=== PATIENT | male | born 1990 | race Caucasian/White ===

== ENCOUNTER 2016-11-23 07:48 | Emergency (ER) | payer SELFPAY ==
[~2016-11-23] VITALS: Ht 177.8 cm; Wt 75.0 kg
[~2016-11-23 07:48] MED LIST: HYDR-3534 PO
[2016-11-23 07:49] VITALS: BP 162/99; PULSE 74; RESP 16; TEMP 97.9; O2SAT 98
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
[2016-11-23 07:57] VITALS: O2SAT 98
[2016-11-23] MEDS ORDERED: ONDANSETRON HCL 4 MG/2 ML VIAL IVP ONE (08:00)
[2016-11-23] MEDS ORDERED: MORPHINE SULFATE 4 MG/ML INJ IV PUSH ONE (08:00)
[2016-11-23] MEDS ORDERED: SODIUM CHLOR 0.9% 1000 ML INJ 1,000 ML IV SCH (08:00)
[2016-11-23] MEDS ORDERED: SODIUM CHLORIDE 0.9% FLUSH 5 ML FLUSH IVF PRN (08:00)
[2016-11-23] MEDS ORDERED: BACL10TA PO (08:02)
[2016-11-23 08:12] VITALS: BP 146/86; PULSE 86; RESP 16; O2SAT 95
[2016-11-23 08:13] LABS: AUTOMATED NEUTROPHIL # 6.4 TH/MM3 (1.8-7.7); BASOPHIL # 0.1 TH/MM3 (0-0.2); BASOPHIL % 0.8 % (0.0-2.0); EOSINOPHIL # 0.2 TH/MM3 (0-0.4); EOSINOPHIL % 1.6 % (0.0-4.0); HEMATOCRIT 47.1 % (39.0-51.0); HEMO FLAGS DIFF FINAL; LYMPH % 19.3 % (9.0-44.0); LYMPHOCYTE # 1.8 TH/MM3 (1.0-4.8); MEAN CELL VOLUME 84.5 FL (80.0-100.0); MEAN CORPUSCULAR HEMOGLOBIN 29.8 PG (27.0-34.0); MEAN CORPUSCULAR HGB CONC 35.2 % (32.0-36.0); MONO % 9.2 % (0.0-8.0); NEUT % 69.1 % (16.0-70.0); PLATELET COUNT 203 TH/MM3 (150-450); RED BLOOD COUNT 5.57 MIL/MM3 (4.50-5.90); WHITE BLOOD COUNT 9.3 TH/MM3 (4.0-11.0)
[2016-11-23 08:32] LABS: ALT (GPT) 42 U/L (12-78); ANION GAP 9 MEQ/L (5-15); AST (GOT) 30 U/L (15-37); BLOOD UREA NITROGEN 13 MG/DL (7-18); CHLORIDE 107 MEQ/L (98-107); GLOMERULAR FILTRATION RATE 77 ML/MIN (>89); POTASSIUM 3.5 MEQ/L (3.5-5.1); SODIUM (NA) 141 MEQ/L (136-145)
[2016-11-23 08:34] LABS: ALKALINE PHOSPHATASE 90 U/L (45-117); TOTAL BILIRUBIN ADULT 1.1 MG/DL (0.2-1.0)
--- NOTE | 2016-11-23 08:48 | RADRPT ---
EXAM DATE/TIME: 11/23/2016 08:24 [facility] COMPARISON: CT ABDOMEN & PELVIS W/O CONTRAST, July 21, 2016, 7:58. INDICATIONS : Right upper quadrant pain. ORAL CONTRAST: No oral contrast ingested. RADIATION DOSE: 9.30 CTDIvol (mGy) MEDICAL HISTORY : None SURGICAL HISTORY : None. ENCOUNTER: Initial ACUITY: 1 day PAIN SCALE: 6/10 LOCATION: Right upper quadrant TECHNIQUE: Volumetric scanning of the abdomen and pelvis was performed. Using automated exposure control and ad justment of the mA and/or kV according to patient size, radiation dose was kept as low as reasonably achievable to obtain optimal diagnostic quality images. FINDINGS: LOWER LUNGS: The visualized lower lungs are clear. LIVER: Homogeneous density without lesion. There is no dilation of the biliary tree. No calcified gallston es. SPLEEN: Normal size without lesion. PANCREAS: Within normal limits. KIDNEYS: Normal in size and shape. There is no mass, stone, or hydronephrosis. ADRENAL GLANDS: Within normal limits. VASCULAR: There is no aortic aneurysm. BOWEL/MESENTERY: The stomach, small bowel, and colon demonstrate no acute abnormality. There is no free intraperitone al air or fluid. ABDOMINAL WALL: Within normal limits. RETROPERITONEUM: There is no lymphadenopathy. BLADDER: No wall thickening or mass. REPRODUCTIVE: Within normal limits. INGUINAL: There is no lymphadenopathy or hernia. MUSCULOSKELETAL: Within normal limits for patient age. CONCLUSION: No abnormality is identified on this noncontrast examination. Rocky Ferro MD on November 23, 2016 at 8:33 Board Certified Radiologist. This report was verified electronically.
[2016-11-23 09:24] LABS: BLOOD, URINE NEG (NEG); GLUCOSE,URINE NEG (NEG); KETONE, URINE NEG (NEG); MUCUS URINE FEW /lpf (OCC); NITRITE,URINE NEG (NEG); PH, URINE 5.5 (5.0-8.5); SQUAMOUS EPITHELIAL CELL URINE <1 /hpf (0-5); URINE COLOR YELLOW (YELLW/STRAW)
[2016-11-23 09:30] LABS: COMMENT (UR) CULT NOT INDICATED; CULTURE IF INDICATED CULT NOT INDICATED
[2016-11-23 09:50] VITALS: BP 142/74
== END 2016-11-23 09:51 | disposition home or self-care (01) ==
LOC: NEPE 07:48
DX: R10.10 Upper abdominal pain, unspecified (principal); R30.0 Dysuria; K44.9 Diaphragmatic hernia without obstruction or gangrene; K21.9 Gastro-esophageal reflux disease without esophagitis
CPT/HCPCS: 74176; 80053; 81001; 83690; 85025; 96374; 96375; 99284; J2270; J2405; J7030

== ENCOUNTER 2016-12-14 07:31 | Emergency (ER) | payer SELFPAY ==
[~2016-12-14] VITALS: Ht 170.2 cm; Wt 83.5 kg
[~2016-12-14 07:31] MED LIST changes: +BACL10TA PO; -HYDR-3534 PO
[2016-12-14 07:35] VITALS: BP 139/93; PULSE 70; RESP 16; TEMP 97.7; O2SAT 98
[2016-12-14] MEDS ORDERED: NAPR500T PO (08:00)
[2016-12-14] MEDS ORDERED: KETOROLAC TROMETHAMINE 60 MG/2 ML (IM) VIAL IM ONE (08:00)
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
== END 2016-12-14 08:13 | disposition home or self-care (01) ==
LOC: PHED 07:31
DX: G89.29 Other chronic pain (principal)
CPT/HCPCS: 96372; 99283; J1885

== ENCOUNTER 2017-09-11 11:36 | Observation (INO) | payer SELFPAY ==
[~2017-09-11] VITALS: Ht 170.2 cm; Wt 90.7 kg
[~2017-09-11 11:36] MED LIST changes: +NAPR500T2 PO
[2017-09-11 11:38] VITALS: BP 186/100; PULSE 79; RESP 16; TEMP 97.8; O2SAT 98
[2017-09-11 12:06] LABS: AUTOMATED NEUTROPHIL # 6.3 TH/MM3 (1.8-7.7); BASOPHIL # 0.1 TH/MM3 (0-0.2); BASOPHIL % 0.9 % (0.0-2.0); EOSINOPHIL # 0.2 TH/MM3 (0-0.4); EOSINOPHIL % 1.6 % (0.0-4.0); HEMATOCRIT 48.1 % (39.0-51.0); HEMO FLAGS DIFF FINAL; LYMPH % 22.1 % (9.0-44.0); LYMPHOCYTE # 2.2 TH/MM3 (1.0-4.8); MEAN CELL VOLUME 87.1 FL (80.0-100.0); MEAN CORPUSCULAR HEMOGLOBIN 30.6 PG (27.0-34.0); MEAN CORPUSCULAR HGB CONC 35.1 % (32.0-36.0); MONO % 11.5 % (0.0-8.0); NEUT % 63.9 % (16.0-70.0); PLATELET COUNT 212 TH/MM3 (150-450); RED BLOOD COUNT 5.52 MIL/MM3 (4.50-5.90); RED CELL DISTRIBUTION WIDTH 12.9 % (11.6-17.2); WHITE BLOOD COUNT 9.8 TH/MM3 (4.0-11.0)
[2017-09-11 12:25] LABS: ALT (GPT) 51 U/L (12-78); ANION GAP 6 MEQ/L (5-15); AST (GOT) 31 U/L (15-37); BLOOD UREA NITROGEN 12 MG/DL (7-18); CHLORIDE 106 MEQ/L (98-107); GLOMERULAR FILTRATION RATE 85 ML/MIN (>89); POTASSIUM 3.9 MEQ/L (3.5-5.1); SODIUM (NA) 140 MEQ/L (136-145)
[2017-09-11 12:27] LABS: ALKALINE PHOSPHATASE 103 U/L (45-117); TOTAL BILIRUBIN ADULT 0.4 MG/DL (0.2-1.0)
[2017-09-11] MEDS ORDERED: SODIUM CHLOR 0.9% 1000 ML INJ 1,000 ML IV SCH ×2 (12:47→15:34)
--- NOTE | 2017-09-11 12:50 | PD ---
HPI Chief Complaint: GI Complaint Time Seen by Provider: 12:50 Travel History International Travel<30 days: No Contact w/Intl Traveler<30days: No Traveled to known affect area: No History of Present Illness HPI 27-year-old male that presents emergency Department with complaint of epigastric pain that started this morning. Reports vomiting 2 times with hematocrit emesis; last vomited 3 hours ago. Continued nausea. Reports feeling lightheaded and hot. Denies fevers. Denies dysuria, change in stool; bowel movement this morning was normal. Reports fatigue and feeling tired. Denies chest pain, shortness of breath. Has not taken any medications or drainage to alleviate symptoms. Has history of prostatic fossa chill hernia repair and history of gallstones. No other abdominal surgeries. Rates pain 4/ 10. Worse with sitting up. Described as burning. No known allergies. Primary care provider is Dr. Gallagher. Denies significant past medical history. Reports occasional alcohol use. Denies tobacco use or illicit drug use. Has no other medical complaints. No other modifying factors or associated signs and symptoms. PFSH Past Medical History Asthma: No Blood Disorders: No Anxiety: No Depression: No Heart Rhythm Problems: No Cancer: No Cardiovascular Problems: No High Cholesterol: No Chemotherapy: No Chest Pain: No Congestive Heart Failure: No COPD: No Cerebrovascular Accident: No Diabetes: No Diminished Hearing: No Endocrine: No Gastrointestinal Disorders: Yes (GERD, HX GALL STONES) GERD: No Genitourinary: No Headaches: Yes Hepatitis: No Hiatal Hernia: Yes Immune Disorder: No Musculoskeletal: No Neurologic: Yes ("SEIZURE-LIKE SYMPTOMS" RESOLVED) Psychiatric: Yes (ANXIETY HX) Reproductive: No Respiratory: No Immunizations Current: Yes Migraines: No Seizures: No Sleep Apnea: No Thyroid Disease: No Ulcer: No Past Surgical History Abdominal Surgery: Yes (laparoscopy parasphyngeal hernia repair) AICD: No Joint Replacement: No Oral Surgery: Yes (TONSILLECTOMY AGE 5) Pacemaker: No Tonsillectomy: Yes Other Surgery: Yes Social History Alcohol Use: Yes (occ) Tobacco Use: No (never) Substance Use: No Allergies-Medications (Allergen,Severity, Reaction): Coded Allergies: No Known Allergies (Verified Allergy, Unknown, 09/11/17) Reported Meds & Prescriptions Reported Meds & Active Scripts Active No Active Prescriptions or Reported Medications Review of Systems Except as stated in HPI: all other systems reviewed are Neg Physical Exam Narrative GENERAL: Well-nourished, well-developed male patient, in no acute distress; afebrile SKIN: Warm and dry. HEAD: Atraumatic. Normocephalic. EYES: Pupils equal and round. No scleral icterus. No injection or drainage. ENT: Mucosa pink and moist. Airway patent. NECK: Trachea midline. CARDIOVASCULAR: Regular rate and rhythm. No murmur appreciated. RESPIRATORY: No accessory muscle use. Clear to auscultation. Breath sounds equal bilaterally. GASTROINTESTINAL: Abdomen soft, tenderness on palpation to epigastric and RUQ, nondistended. Hepatic and splenic margins not palpable. Positive Clark's sign Bowel sounds are active 4 quadrants. Nonrigid. No rebound tenderness. No guarding. BACK: No CVA tenderness. MUSCULOSKELETAL: No obvious deformities. No clubbing. No cyanosis. No edema. NEUROLOGICAL: Awake and alert. Oriented 3. No obvious cranial nerve deficits. Motor grossly within normal limits. Normal speech. PSYCHIATRIC: Appropriate mood and affect; insight and judgment normal. Data Data Last Documented VS Vital Signs Date Time Temp Pulse Resp B/P (MAP) Pulse Ox O2 Delivery O2 Flow Rate FiO2 09/11/17 14:45 77 16 160/95 (116) 98 Room Air 09/11/17 11:38 97.8 Orders Orders Complete Blood Count With Diff (09/11/17 11:42) Comprehensive Metabolic Panel (09/11/17 11:42) Lipase (09/11/17 11:42) Urinalysis - C+S If Indicated (09/11/17 12:47) Ct Abd/Pel W/O Iv Contrast (09/11/17 12:47) Iv Access Insert/Monitor (09/11/17 12:47) Ondansetron Inj (Zofran Inj) (09/11/17 13:00) Sodium Chlor 0.9% 1000 Ml Inj (Ns 1000 M (09/11/17 12:47) Sodium Chloride 0.9% Flush (Ns Flush) (09/11/17 13:00) Ciprofloxacin 400 Mg Premix (Cipro 400 M (09/11/17 15:30) Metronidazole 500 Mg Inj (Flagyl 500 Mg (09/11/17 15:30) Pantoprazole Inj (Protonix Inj) (09/11/17 15:45) Admit Order (Ed Use Only) (09/11/17 ) Vital Signs (Adult) Q4H (09/11/17 15:34) Activity Oob With Assistance (09/11/17 15:34) Sodium Chlor 0.9% 1000 Ml Inj (Ns 1000 M (09/11/17 15:34) Labs Laboratory Tests Test 09/11/17 11:30 09/11/17 13:15 White Blood Count 9.8 TH/MM3 Red Blood Count 5.52 MIL/MM3 Hemoglobin 16.9 GM/DL Hematocrit 48.1 % Mean Corpuscular Volume 87.1 FL Mean Corpuscular Hemoglobin 30.6 PG Mean Corpuscular Hemoglobin Concent 35.1 % Red Cell Distribution Width 12.9 % Platelet Count 212 TH/MM3 Mean Platelet Volume 9.6 FL Neutrophils (%) (Auto) 63.9 % Lymphocytes (%) (Auto) 22.1 % Monocytes (%) (Auto) 11.5 % Eosinophils (%) (Auto) 1.6 % Basophils (%) (Auto) 0.9 % Neutrophils # (Auto) 6.3 TH/MM3 Lymphocytes # (Auto) 2.2 TH/MM3 Monocytes # (Auto) 1.1 TH/MM3 Eosinophils # (Auto) 0.2 TH/MM3 Basophils # (Auto) 0.1 TH/MM3 CBC Comment DIFF FINAL Differential Comment Erythrocyte Sedimentation Rate 1 mm/hr Blood Urea Nitrogen 12 MG/DL Creatinine 1.05 MG/DL Random Glucose 73 MG/DL Total Protein 8.2 GM/DL Albumin 4.7 GM/DL Calcium Level 9.2 MG/DL Alkaline Phosphatase 103 U/L Aspartate Amino Transf (AST/SGOT) 31 U/L Alanine Aminotransferase (ALT/SGPT) 51 U/L Total Bilirubin 0.4 MG/DL Sodium Level 140 MEQ/L Potassium Level 3.9 MEQ/L Chloride Level 106 MEQ/L Carbon Dioxide Level 28.0 MEQ/L Anion Gap 6 MEQ/L Estimat Glomerular Filtration Rate 85 ML/MIN Lipase 78 U/L Urine Color YELLOW Urine Turbidity CLEAR Urine pH 5.5 Urine Specific [place] 1.023 Urine Protein NEG mg/dL Urine Glucose (UA) NEG mg/dL Urine Ketones NEG mg/dL Urine Occult Blood NEG Urine Nitrite NEG Urine Bilirubin NEG Urine Urobilinogen 2.0 MG/DL Urine Leukocyte Esterase NEG Urine WBC 1 /hpf Urine Calcium Oxalate Crystals OCC /hpf Urine Mucus FEW /lpf Microscopic Urinalysis Comment CULT NOT INDICATED MDM Medical Decision Making Medical Screen Exam Complete: Yes Emergency Medical Condition: Yes Medical Record Reviewed: Yes Differential Diagnosis Bleeding gastric ulcer, cholecystitis, Narrative Course 27-year-old male with epigastric and right upper quadrant abdominal pain on exam. IV site established. CBC, CMP, lipase, normal saline bolus, Zofran, CT abdomen/pelvis ordered. I offered the patient pain medication and he declined. 1250: CBC, CMP unremarkable. Lipase 78. 1520: CT abd/pelvis concludes: Abdomen/Pelvis CT 09/11/17 1247 Signed Impressions: Service Date/Time: Monday, September 11, 2017 14:36 - CONCLUSION: 1. Mild circumferential wall thickening of a proximal to mid jejunal loop with multiple slightly distended primarily air filled loops of mid to distal jejunum. More proximal and distal loops of bowel are decompressed. There also some slightly prominent regional mesenteric nodes. Overall findings may be inflammatory or infectious in etiology with developing focal adynamic ileus or less likely partial small bowel obstruction. Overall configuration does not exclude a closed-loop obstruction. MD Dr. Lance Khoury discussed the CT findings with the patient. The patient will be admitted. Dr. Lucas spoke with the admitting physician for admission. Physician Communication Physician Communication Dr. Lucas spoke with admitting physician Diagnosis Primary Impression: Upper abdominal pain, unspecified Admitting Information Admitting Physician Requests: Admit Scripts No Active Prescriptions or Reported Meds Bia Cruz Sep 11, 2017 12:50
[2017-09-11] MEDS ORDERED: ONDANSETRON HCL 4 MG/2 ML VIAL IVP ONE (13:00)
[2017-09-11] MEDS ORDERED: SODIUM CHLORIDE 0.9% FLUSH 10 ML FLUSH IV FLUSH PRN ×2 (13:00→16:30)
[2017-09-11 14:04] LABS: BLOOD, URINE NEG (NEG); CALCIUM OXALATE CRYSTALS,URINE OCC /hpf; GLUCOSE,URINE NEG (NEG); KETONE, URINE NEG (NEG); MUCUS URINE FEW /lpf (OCC); NITRITE,URINE NEG (NEG); PH, URINE 5.5 (5.0-8.5); URINE COLOR YELLOW (YELLW/STRAW)
[2017-09-11 14:05] LABS: COMMENT (UR) CULT NOT INDICATED; CULTURE IF INDICATED CULT NOT INDICATED
[2017-09-11 14:45] VITALS: BP 160/95; PULSE 77; RESP 16; O2SAT 98
--- NOTE | 2017-09-11 15:09 | RADRPT ---
EXAM DATE/TIME: 09/11/2017 14:36 [place] COMPARISON: CT ABDOMEN & PELVIS W/O CONTRAST, November 23, 2016, 8:24. INDICATIONS : Epigastric and right upper quadrant pain and burning. ORAL CONTRAST: No oral contrast ingested. RADIATION DOSE: 16.39 CTDIvol (mGy) MEDICAL HISTORY : Hernia, hiatal. SURGICAL HISTORY : None. ENCOUNTER: Initial ACUITY: 1 day PAIN SCALE: 8/10 LOCATION: Right upper quadrant TECHNIQUE: Volumetric scanning of the abdomen and pelvis was performed. Using automated exposure control and ad justment of the mA and/or kV according to patient size, radiation dose was kept as low as reasonably achievable to obtain optimal diagnostic quality images. DICOM format image data is available electro nically for review and comparison. FINDINGS: LOWER LUNGS: The visualized lower lungs are clear. LIVER: Homogeneous density without lesion. There is no dilation of the biliary tree. No calcified gallston es. SPLEEN: Normal size without lesion. PANCREAS: Within normal limits. KIDNEYS: Normal in size and shape. There is no mass, stone, or hydronephrosis. ADRENAL GLANDS: Within normal limits. VASCULAR: There is no aortic aneurysm. BOWEL/MESENTERY: The stomach, duodenum and proximal jejunum are normal in appearance. There is mild circumferential wa ll thickening of a proximal to mid jejunal loop with multiple slightly distended primarily air filled mid to distal jejunal loops measuring up to 3.4 cm. With a definite transition point is not visualiz ed distally. However, the majority of the ileal loops are decompressed and normal in caliber. There i s no pneumatosis or free air. Several slightly prominent basal mesenteric nodes in the left upper [place] dr[place] are noted. ABDOMINAL WALL: Within normal limits. RETROPERITONEUM: There is no lymphadenopathy. BLADDER: No wall thickening or mass. REPRODUCTIVE: Within normal limits. INGUINAL: There is no lymphadenopathy or hernia. MUSCULOSKELETAL: Within normal limits for patient age. CONCLUSION: 1. Mild circumferential wall thickening of a proximal to mid jejunal loop with multiple slightly dist ended primarily air filled loops of mid to distal jejunum. More proximal and distal loops of bowel ar e decompressed. There also some slightly prominent regional mesenteric nodes. Overall findings may be inflammatory or infectious in etiology with developing focal adynamic ileus or less likely partial s mall bowel obstruction. Overall configuration does not exclude a closed-loop obstruction. Jonatan Cantu MD on September 11, 2017 at 14:46 Board Certified Radiologist. This report was verified electronically.
[2017-09-11] MEDS ORDERED: metroNIDAZOLE 500 MG INJ 100 ML IV ONE (15:30)
[2017-09-11] MEDS ORDERED: CIPROFLOXACIN 400 MG PREMIX 200 ML IV ONE (15:30)
--- NOTE | 2017-09-11 15:35 | PD ---
Data Data Last Documented VS Vital Signs Date Time Temp Pulse Resp B/P (MAP) Pulse Ox O2 Delivery O2 Flow Rate FiO2 09/11/17 14:45 77 16 160/95 (116) 98 Room Air 09/11/17 11:38 97.8 Orders Orders Complete Blood Count With Diff (09/11/17 11:42) Comprehensive Metabolic Panel (09/11/17 11:42) Lipase (09/11/17 11:42) Urinalysis - C+S If Indicated (09/11/17 12:47) Ct Abd/Pel W/O Iv Contrast (09/11/17 12:47) Iv Access Insert/Monitor (09/11/17 12:47) Ondansetron Inj (Zofran Inj) (09/11/17 13:00) Sodium Chlor 0.9% 1000 Ml Inj (Ns 1000 M (09/11/17 12:47) Sodium Chloride 0.9% Flush (Ns Flush) (09/11/17 13:00) Ciprofloxacin 400 Mg Premix (Cipro 400 M (09/11/17 15:30) Metronidazole 500 Mg Inj (Flagyl 500 Mg (09/11/17 15:30) Pantoprazole Inj (Protonix Inj) (09/11/17 15:45) Admit Order (Ed Use Only) (09/11/17 ) Vital Signs (Adult) Q4H (09/11/17 15:34) Activity Oob With Assistance (09/11/17 15:34) Sodium Chlor 0.9% 1000 Ml Inj (Ns 1000 M (09/11/17 15:34) Labs Laboratory Tests Test 09/11/17 11:30 09/11/17 13:15 White Blood Count 9.8 TH/MM3 Red Blood Count 5.52 MIL/MM3 Hemoglobin 16.9 GM/DL Hematocrit 48.1 % Mean Corpuscular Volume 87.1 FL Mean Corpuscular Hemoglobin 30.6 PG Mean Corpuscular Hemoglobin Concent 35.1 % Red Cell Distribution Width 12.9 % Platelet Count 212 TH/MM3 Mean Platelet Volume 9.6 FL Neutrophils (%) (Auto) 63.9 % Lymphocytes (%) (Auto) 22.1 % Monocytes (%) (Auto) 11.5 % Eosinophils (%) (Auto) 1.6 % Basophils (%) (Auto) 0.9 % Neutrophils # (Auto) 6.3 TH/MM3 Lymphocytes # (Auto) 2.2 TH/MM3 Monocytes # (Auto) 1.1 TH/MM3 Eosinophils # (Auto) 0.2 TH/MM3 Basophils # (Auto) 0.1 TH/MM3 CBC Comment DIFF FINAL Differential Comment Erythrocyte Sedimentation Rate 1 mm/hr Blood Urea Nitrogen 12 MG/DL Creatinine 1.05 MG/DL Random Glucose 73 MG/DL Total Protein 8.2 GM/DL Albumin 4.7 GM/DL Calcium Level 9.2 MG/DL Alkaline Phosphatase 103 U/L Aspartate Amino Transf (AST/SGOT) 31 U/L Alanine Aminotransferase (ALT/SGPT) 51 U/L Total Bilirubin 0.4 MG/DL Sodium Level 140 MEQ/L Potassium Level 3.9 MEQ/L Chloride Level 106 MEQ/L Carbon Dioxide Level 28.0 MEQ/L Anion Gap 6 MEQ/L Estimat Glomerular Filtration Rate 85 ML/MIN Lipase 78 U/L Urine Color YELLOW Urine Turbidity CLEAR Urine pH 5.5 Urine Specific [place] 1.023 Urine Protein NEG mg/dL Urine Glucose (UA) NEG mg/dL Urine Ketones NEG mg/dL Urine Occult Blood NEG Urine Nitrite NEG Urine Bilirubin NEG Urine Urobilinogen 2.0 MG/DL Urine Leukocyte Esterase NEG Urine WBC 1 /hpf Urine Calcium Oxalate Crystals OCC /hpf Urine Mucus FEW /lpf Microscopic Urinalysis Comment CULT NOT INDICATED MDM Medical Record Reviewed: Yes Supervised Visit with DALILA: Yes Narrative Course I, Dr. Lucas, have reviewed the advance practice practitioner's documentation and am in agreement, met with the patient face to face, made the diagnosis, and the medical decision making was done by me. *My assessment and Findings: CBC & BMP Diagram 09/11/17 11:30 Total Protein 8.2, Albumin 4.7, Calcium Level 9.2, Alkaline Phosphatase 103, Aspartate Amino Transf (AST/SGOT) 31, Alanine Aminotransferase (ALT/SGPT) 51, Total Bilirubin 0.4 Last Impressions Abdomen/Pelvis CT 09/11/17 2747 Signed Impressions: Service Date/Time: Monday, September 11, 2017 14:36 - CONCLUSION: 1. Mild circumferential wall thickening of a proximal to mid jejunal loop with multiple slightly distended primarily air filled loops of mid to distal jejunum. More proximal and distal loops of bowel are decompressed. There also some slightly prominent regional mesenteric nodes. Overall findings may be inflammatory or infectious in etiology with developing focal adynamic ileus or less likely partial small bowel obstruction. Overall configuration does not exclude a closed-loop obstruction. Jonatan Cantu MD Admission for IV hydration and further evaluation by GI. Scripts No Active Prescriptions or Reported Meds Salvador Lucas MD Sep 11, 2017 15:35
--- NOTE | 2017-09-11 15:38 | HHI.HP ---
[facility] Service Family Medicine Primary Care Physician Non-Staff Admission Diagnosis Diagnoses: International Travel<30 Days: No Contact w/Intl Traveler<30days: No Known Affected Area: No History of Present Illness 27-year-old male presents today after vomiting blood twice earlier today and with epigastric burning discomfort. Patient says he went to work as normal this morning. He states out of nowhere, he started vomiting about 1.5 cup of his breakfast with red blood. He did this one other time as well. Since that time he has been having burning 6 out of 10 discomfort in his epigastric region. He denies saying the word pain. He just says it is burning. He denies radiation. He does not have a plasma center technician. Nothing helps the pain. It is constant in nature. He has not had an appetite since this morning. He has never had an EGD or colonoscopy. Patient has had a paraesophageal hernia repair which was laparoscopic robot assisted. Patient does not follow surgery for this reason anymore. He states ever since the surgery, he has had difficulty swallowing and feels like food sometimes gets "stuck." He no longer feels like vomiting. He is a little nauseated but otherwise well. He denies fever, chills. He says that he has had 2 episodes of black stool, earlier today; otherwise his stools have been normal.. Denies bloody stool. (Armando Monterroso MD, R3) Review of Systems Constitutional: DENIES: Fever, Weight loss, Chills Eyes: DENIES: Blurred vision, Diplopia, Vision loss, Double Vision Ears, nose, mouth, throat: DENIES: Vertigo Respiratory: COMPLAINS OF: Cough, DENIES: Shortness of breath Cardiovascular: DENIES: Chest pain, Palpitations Gastrointestinal: COMPLAINS OF: Abdominal pain (upper stomach), Black stools ( twice yesterday), Nausea, Vomiting, Difficulty Swallowing, DENIES: Bloody stools , Constipation, Diarrhea Genitourinary: DENIES: Hematuria, Dysuria Neurologic: DENIES: Abnormal gait, Headache Psychiatric: COMPLAINS OF: Anxiety, DENIES: Confusion (Armando Monterroso MD, R3) Past Family Social History Past Medical History None Past Surgical History Tonsillectomy Robotic paraesophageal hernia repair with mesh Reported Medications OTC vitamins: regular adult vitamins Reported Meds & Active Scripts Active No Active Prescriptions or Reported Medications (Armando Monterroso MD, R3) Allergies: Coded Allergies: No Known Allergies (Verified Allergy, Unknown, 09/11/17) Active Ordered Medications Active Medications Ciprofloxacin/ Dextrose 200 ml @ 200 mls/hr ONCE ONCE IV; Start 09/11/17 at 15:30; Stop 09/11/17 at 16:29 Metronidazole 100 ml @ 100 mls/hr ONCE ONCE IV; Start 09/11/17 at 15:30; Stop 09/11/17 at 16:29 Ondansetron HCl (Zofran Inj) 4 mg ONCE ONCE IVP Last administered on 13:22; Admin Dose 4 MG; Start 09/11/17 at 13:00; Stop 09/11/17 at 13:01; Status DC Pantoprazole Sodium (Protonix Inj) 40 mg ONCE ONCE IVP; Start 09/11/17 at 15: 45; Stop 09/11/17 at 15:46 Sodium Chloride 1,000 ml @ 125 mls/hr Q8H IV; Start 09/11/17 at 15:34; Stop 09/11/17 at 23:33 Sodium Chloride 1,000 ml @ 1,000 mls/hr Q1H IV Last administered on 09/11/17 13:22; Admin Dose 1,000 MLS/HR; Start 09/11/17 at 12:47; Stop 09/11/17 at 13: 46; Status DC Sodium Chloride (NS Flush) 2 ml UNSCH PRN IV FLUSH; Start 09/11/17 at 13:00 Family History Mom: healthy Dad: diabetes Social History Does not smoke. Occasionally drinks alcohol 2-3 times per week (1-2 beers) (Armando Monterroso MD, R3) Physical Exam Vital Signs Vital Signs Date Time Temp Pulse Resp B/P (MAP) Pulse Ox O2 Delivery O2 Flow Rate FiO2 09/11/17 11:38 97.8 79 16 186/100 (128) 98 Physical Exam GENERAL: This is a well-nourished, well-developed patient, in no apparent distress. SKIN: No rashes, ecchymoses or lesions. Cool and dry. HEAD: Atraumatic. Normocephalic. No temporal or scalp tenderness. EYES: Pupils equal round and reactive. Extraocular motions intact. No scleral icterus. No injection or drainage. ENT: Nose without bleeding, purulent drainage or septal hematoma. Throat without erythema, tonsillar hypertrophy or exudate. Uvula midline. Airway patent. NECK: Trachea midline. No JVD or lymphadenopathy. Supple, nontender, no meningeal signs. CARDIOVASCULAR: Regular rate and rhythm without murmurs, gallops, or rubs. RESPIRATORY: Clear to auscultation. Breath sounds equal bilaterally. No wheezes , rales, or rhonchi. GASTROINTESTINAL: Abdomen soft, non-tender, nondistended. No hepato-splenomegaly , or palpable masses. No guarding. Rectal: Hemoccult negative, no masses palpated MUSCULOSKELETAL: Extremities without clubbing, cyanosis, or edema. No joint tenderness, effusion, or edema noted. No calf tenderness. Negative Homans sign bilaterally. NEUROLOGICAL: Awake and alert. Cranial nerves II through XII intact. Motor and sensory grossly within normal limits. Five out of 5 muscle strength in all muscle groups. Normal speech. Laboratory Laboratory Tests Test 09/11/17 11:30 09/11/17 13:15 White Blood Count 9.8 Red Blood Count 5.52 Hemoglobin 16.9 Hematocrit 48.1 Mean Corpuscular Volume 87.1 Mean Corpuscular Hemoglobin 30.6 Mean Corpuscular Hemoglobin Concent 35.1 Red Cell Distribution Width 12.9 Platelet Count 212 Mean Platelet Volume 9.6 Neutrophils (%) (Auto) 63.9 Lymphocytes (%) (Auto) 22.1 Monocytes (%) (Auto) 11.5 Eosinophils (%) (Auto) 1.6 Basophils (%) (Auto) 0.9 Neutrophils # (Auto) 6.3 Lymphocytes # (Auto) 2.2 Monocytes # (Auto) 1.1 Eosinophils # (Auto) 0.2 Basophils # (Auto) 0.1 CBC Comment DIFF FINAL Differential Comment Blood Urea Nitrogen 12 Creatinine 1.05 Random Glucose 73 Total Protein 8.2 Albumin 4.7 Calcium Level 9.2 Alkaline Phosphatase 103 Aspartate Amino Transf (AST/SGOT) 31 Alanine Aminotransferase (ALT/SGPT) 51 Total Bilirubin 0.4 Sodium Level 140 Potassium Level 3.9 Chloride Level 106 Carbon Dioxide Level 28.0 Anion Gap 6 Estimat Glomerular Filtration Rate 85 Lipase 78 Urine Color YELLOW Urine Turbidity CLEAR Urine pH 5.5 Urine Specific [place] 1.023 Urine Protein NEG Urine Glucose (UA) NEG Urine Ketones NEG Urine Occult Blood NEG Urine Nitrite NEG Urine Bilirubin NEG Urine Urobilinogen 2.0 Urine Leukocyte Esterase NEG Urine WBC 1 Urine Calcium Oxalate Crystals OCC Urine Mucus FEW Microscopic Urinalysis Comment CULT NOT INDICATED (Armando Monterroso MD, R3) Result Diagram: 09/11/17 1130 09/11/17 1130 Imaging Last Impressions Abdomen/Pelvis CT 09/11/17 1247 Signed Impressions: Service Date/Time: Monday, September 11, 2017 14:36 - CONCLUSION: 1. Mild circumferential wall thickening of a proximal to mid jejunal loop with multiple slightly distended primarily air filled loops of mid to distal jejunum. More proximal and distal loops of bowel are decompressed. There also some slightly prominent regional mesenteric nodes. Overall findings may be inflammatory or infectious in etiology with developing focal adynamic ileus or less likely partial small bowel obstruction. Overall configuration does not exclude a closed-loop obstruction. Jonatan Cantu MD (Armando Monterroso MD, R3) Caprini VTE Risk Assessment Caprini VTE Risk Assessment: No/Low Risk (score <= 1) Caprini Risk Assessment Model Point Value = 1 Point Value = 2 Point Value = 3 Point Value = 5 Age 41-60 Minor surgery BMI > 25 kg/m2 Swollen legs Varicose veins or History of unexplained or recurrent spontaneous Oral contraceptives or hormone replacement Sepsis (< 1 month) Serious lung disease, including pneumonia (< 1 month) Abnormal pulmonary function Acute myocardial infarction Congestive heart failure (< 1 month) History of inflammatory bowel disease Medical patient at bed rest Age 61-74 Arthroscopic surgery Major open surgery (> 45 min) Laparoscopic surgery (> 45 min) Malignancy Confined to bed (> 72 hours) Immobilizing plaster cast Central venous access Age >= 75 History of VTE Family history of VTE Factor V Leiden Prothrombin [id number] Lupus anticoagulant Anticardiolipin antibodies Elevated serum homocysteine Heparin-induced thrombocytopenia Other congenital or acquired thrombophilia Stroke (< 1 month) Elective arthroplasty Hip, pelvis, or leg fracture Acute spinal cord injury (< 1 month) Prophylaxis Regimen Total Risk Factor Score Risk Level Prophylaxis Regimen 0-1 Low Early ambulation 2 Moderate Order ONE of the following: *Sequential Compression Device (SCD) *Heparin 5000 units SQ BID 3-4 Higher Order ONE of the following medications: *Heparin 5000 units SQ TID *Enoxaparin/Lovenox 40 mg SQ daily (WT < 150 kg, CrCl > 30 mL/min) *Enoxaparin/Lovenox 30 mg SQ daily (WT < 150 kg, CrCl > 10-29 mL/min) *Enoxaparin/Lovenox 30 mg SQ BID (WT < 150 kg, CrCl > 30 mL/min) AND/OR *Sequential Compression Device (SCD) 5 or more Highest Order ONE of the following medications: *Heparin 5000 units SQ TID (Preferred with Epidurals) *Enoxaparin/Lovenox 40 mg SQ daily (WT < 150 kg, CrCl > 30 mL/min) *Enoxaparin/Lovenox 30 mg SQ daily (WT < 150 kg, CrCl > 10-29 mL/min) *Enoxaparin/Lovenox 30 mg SQ BID (WT < 150 kg, CrCl > 30 mL/min) AND *Sequential Compression Device (SCD) (Armando Monterroso MD, R3) Assessment and Plan Assessment and Plan 27-year-old male admitted for emesis, CT findings concerning for inflammatory bowel disease. Gastroenterology consulted Code Status full Discussed Condition With Dr. Madison (Armando Monterroso MD, R3) Attending Attestation THIS CASE WAS DISCUSSED WITH THE RESIDENT PHYSICIAN. I HAVE REVIEWED THE RECORD AND AGREE WITH THE ABOVE NOTE AND PLAN OF CARE WAS DISCUSSED. I HAVE AUTHORIZED THE ORDER FOR PLACEMENT IN OUT-PATIENT OBSERVATION STATUS. (Carlos Enrique Madison MD) Problem List: (1) Hematemesis ICD Codes: K92.0 - Hematemesis Status: Acute Plan: Gastroenterology consult Nothing by mouth after midnight for possible EGD Zofran when necessary nausea Hemoccult negative Consider NG tube Repeat H&H in the morning (2) Inflammatory bowel disease ICD Codes: K52.9 - Noninfective gastroenteritis and colitis, unspecified Status: Acute Plan: CT shows the above findings. Gastroenterology consult Sedimentation rate and CRP ordered (3) FEN/PPX Status: Acute Plan: Fluids: Normal saline at 120 mL per hour Electrolyte: Monitor and replace when necessary Nutrition: Clear liquid diet, nothing by mouth after midnight Prophylaxis: Bilateral SCDs, chemical prophylaxis contraindicated given concern for GI bleed (Armando Monterroso MD, R3) Physician Certification 2 Midnight Certification Type: Admission for Inpatient Services Order for Inpatient Services The services are ordered in accordance with Medicare regulations or non- Medicare payer requirements, as applicable. In the case of services not specified as inpatient-only, they are appropriately provided as inpatient services in accordance with the 2-midnight benchmark. Estimated LOS (days): 2 days is the estimated time the patient will need to remain in the hospital, assuming treatment plan goals are met and no additional complications. Post-Hospital Plan: Home (Armando Monterroso MD, R3) Problem Qualifiers (1) Hematemesis: Qualified Codes: K92.0 - Hematemesis Armando Monterroso MD, R3 Sep 11, 2017 15:38 Carlos Enrique Madison MD Sep 12, 2017 18:12
[2017-09-11] MEDS ORDERED: PANTOPRAZOLE SODIUM 40 MG VIAL IVP ONE (15:45)
[2017-09-11] MEDS ORDERED: SENNOSIDES 8.6 MG TAB PO PRN (16:30)
[2017-09-11] MEDS ORDERED: TEMAZEPAM 15 MG CAP PO PRN (16:30)
[2017-09-11] MEDS ORDERED: ACETAMINOPHEN 325 MG TAB PO PRN (16:30)
[2017-09-11] MEDS ORDERED: BISACODYL 10 MG SUPP RECTAL PRN (16:30)
[2017-09-11] MEDS ORDERED: NALOXONE HCL 0.4 MG/ML AMP IV PUSH PRN (16:30)
[2017-09-11] MEDS ORDERED: LACTULOSE SYRUP 20 GM/30 ML CUP PO PRN (16:30)
[2017-09-11] MEDS ORDERED: MAGNESIUM HYDROXIDE SUSP 30 ML CUP PO PRN (16:30)
[2017-09-11 16:38] VITALS: BP 137/95
[2017-09-11 18:30] VITALS: BP 138/87; PULSE 73; RESP 18; TEMP 98; O2SAT 96
[2017-09-11] MEDS: SODIUM CHLOR 0.9% 1000 ML INJ 1,000 ML IV SCH (18:40)
[2017-09-11 20:24] VITALS: BP 131/58; PULSE 67; RESP 18; TEMP 96.6; O2SAT 97
[2017-09-11] MEDS: SODIUM CHLORIDE 0.9% FLUSH 10 ML FLUSH IV FLUSH SCH (21:00)
[2017-09-11] MEDS: DOCUSATE SODIUM 50 MG/SENNA 8.6 MG TAB PO SCH (22:30)
[2017-09-11 23:53] VITALS: BP 137/74; PULSE 66; RESP 18; TEMP 98; O2SAT 97
[2017-09-12 03:10] VITALS: BP 125/72; PULSE 70; RESP 18; TEMP 97.9; O2SAT 98
[2017-09-12] MEDS: ONDANSETRON HCL 4 MG/2 ML VIAL IVP PRN ×2 (03:51→20:30)
[2017-09-12] MEDS: SODIUM CHLOR 0.9% 1000 ML INJ 1,000 ML IV SCH ×3 (06:06→17:46)
[2017-09-12 07:16] LABS: AUTOMATED NEUTROPHIL # 6.2 TH/MM3 (1.8-7.7); BASOPHIL # 0.1 TH/MM3 (0-0.2); BASOPHIL % 0.7 % (0.0-2.0); EOSINOPHIL # 0.2 TH/MM3 (0-0.4); EOSINOPHIL % 1.9 % (0.0-4.0); HEMATOCRIT 47.2 % (39.0-51.0); HEMO FLAGS DIFF FINAL; LYMPH % 20.3 % (9.0-44.0); LYMPHOCYTE # 1.9 TH/MM3 (1.0-4.8); MEAN CELL VOLUME 87.5 FL (80.0-100.0); MEAN CORPUSCULAR HGB CONC 34.2 % (32.0-36.0); MONO % 10.1 % (0.0-8.0); PLATELET COUNT 203 TH/MM3 (150-450); RED CELL DISTRIBUTION WIDTH 13.2 % (11.6-17.2); WHITE BLOOD COUNT 9.2 TH/MM3 (4.0-11.0)
[2017-09-12 07:23] LABS: INTERNATIONAL NORMALIZED RATIO 1.1 RATIO; PROTHROMBIN TIME - PATIENT 11.4 SEC (9.8-11.6)
[2017-09-12 07:24] VITALS: BP 132/73; PULSE 78; RESP 20; TEMP 97.9; O2SAT 96
[2017-09-12 07:47] LABS: ALT (GPT) 44 U/L (12-78); ANION GAP 7 MEQ/L (5-15); AST (GOT) 22 U/L (15-37); BICARBONATE 25.7 MEQ/L (21.0-32.0); BLOOD UREA NITROGEN 9 MG/DL (7-18); CHLORIDE 108 MEQ/L (98-107); GLOMERULAR FILTRATION RATE 85 ML/MIN (>89); POTASSIUM 3.9 MEQ/L (3.5-5.1); SODIUM (NA) 141 MEQ/L (136-145)
[2017-09-12 07:59] LABS: ALKALINE PHOSPHATASE 77 U/L (45-117); TOTAL BILIRUBIN ADULT 0.7 MG/DL (0.2-1.0)
[2017-09-12] MEDS: SODIUM CHLORIDE 0.9% FLUSH 10 ML FLUSH IV FLUSH SCH ×2 (08:18→20:29)
[2017-09-12] MEDS: DOCUSATE SODIUM 50 MG/SENNA 8.6 MG TAB PO SCH ×2 (08:30→20:29)
--- NOTE | 2017-09-12 09:36 | PD.CONS ---
HPI History of Present Illness This is a 27 year old male s/p robotic laparoscopic assisted paraesophageal hernia repair 2 y ago who presented to the ER with decreased appetite, hematemesis and epigastric burning that started yesterday. Bright red blood in emesis. Never had before. He does admit a few episodes black tarry stool in the past week. Since his hernia repair he has had difficulty swallowing meats, feels like it gets stuck, has some coughing. NO trouble swallowing liquids. Occasional regurgitation of food that was stuck. NO change diet, sick contacts , recent travel. Denies diarrhea, weight loss, blood in stool. Never had EGD or colonoscopy. Denies frequent NSAID use, blood thinners. (Marla Parker) PFSH Past Medical History paraesophageal hernia s/p repair Past Surgical History robot lap assisted paraesophageal hernia T&A (Marla Parker) Coded Allergies: No Known Allergies (Verified Allergy, Unknown, 09/11/17) Family History DM HTN denies family hx colon ca, IBD Social History occasional ETOH no tobacco, illicit drug use (Marla Parker) Review of Systems Constitutional: DENIES: Fever, Weight loss Eyes: DENIES: Blurred vision Ears, nose, mouth, throat: DENIES: Hearing loss Respiratory: DENIES: Cough Cardiovascular: DENIES: Chest pain Gastrointestinal: COMPLAINS OF: Abdominal pain, Black stools, Nausea, Vomiting , Difficulty Swallowing, Hematemesis, DENIES: Bloody stools, Constipation, Diarrhea Genitourinary: DENIES: Hematuria Musculoskeletal: DENIES: Joint Swelling Integumentary: DENIES: Pruritus Hematologic/lymphatic: DENIES: Lymphadenopathy Neurologic: DENIES: Abnormal gait Psychiatric: DENIES: Confusion (Marla Parker) GI Exam Vitals I&O Vital Signs Date Time Temp Pulse Resp B/P (MAP) Pulse Ox O2 Delivery O2 Flow Rate FiO2 09/12/17 07:24 97.9 78 20 132/73 (92) 96 09/12/17 03:10 97.9 70 18 125/72 (89) 98 09/11/17 23:53 98.0 66 18 137/74 (95) 97 09/11/17 20:24 96.6 67 18 131/58 (82) 97 09/11/17 18:30 98.0 73 18 138/87 (104) 96 09/11/17 16:38 73 16 137/95 (109) 97 09/11/17 14:45 77 16 160/95 (116) 98 Room Air 09/11/17 11:38 97.8 79 16 186/100 (128) 98 I/O 09/11/17 09/11/17 09/11/17 09/12/17 09/12/17 09/12/17 07:00 15:00 23:00 07:00 15:00 23:00 Intake Total 1000 ml 200 ml Output Total 1350 ml Balance 1000 ml 200 ml -1350 ml Intake IV Total 1000 ml 200 ml Output Urine Total 1350 ml Imaging Last Impressions Abdomen/Pelvis CT 09/11/17 1247 Signed Impressions: Service Date/Time: Monday, September 11, 2017 14:36 - CONCLUSION: 1. Mild circumferential wall thickening of a proximal to mid jejunal loop with multiple slightly distended primarily air filled loops of mid to distal jejunum. More proximal and distal loops of bowel are decompressed. There also some slightly prominent regional mesenteric nodes. Overall findings may be inflammatory or infectious in etiology with developing focal adynamic ileus or less likely partial small bowel obstruction. Overall configuration does not exclude a closed-loop obstruction. Jonatan Cantu MD Laboratory Test 09/11/17 11:30 09/11/17 13:15 09/11/17 16:47 09/12/17 06:18 White Blood Count 9.8 TH/MM3 9.2 TH/MM3 Red Blood Count 5.52 MIL/MM3 5.40 MIL/MM3 Hemoglobin 16.9 GM/DL 16.2 GM/DL Hematocrit 48.1 % 47.2 % Mean Corpuscular Volume 87.1 FL 87.5 FL Mean Corpuscular Hemoglobin 30.6 PG 30.0 PG Mean Corpuscular Hemoglobin Concent 35.1 % 34.2 % Red Cell Distribution Width 12.9 % 13.2 % Platelet Count 212 TH/MM3 203 TH/MM3 Mean Platelet Volume 9.6 FL 9.9 FL Neutrophils (%) (Auto) 63.9 % 67.0 % Lymphocytes (%) (Auto) 22.1 % 20.3 % Monocytes (%) (Auto) 11.5 % 10.1 % Eosinophils (%) (Auto) 1.6 % 1.9 % Basophils (%) (Auto) 0.9 % 0.7 % Neutrophils # (Auto) 6.3 TH/MM3 6.2 TH/MM3 Lymphocytes # (Auto) 2.2 TH/MM3 1.9 TH/MM3 Monocytes # (Auto) 1.1 TH/MM3 0.9 TH/MM3 Eosinophils # (Auto) 0.2 TH/MM3 0.2 TH/MM3 Basophils # (Auto) 0.1 TH/MM3 0.1 TH/MM3 CBC Comment DIFF FINAL DIFF FINAL Differential Comment Erythrocyte Sedimentation Rate 1 mm/hr Blood Urea Nitrogen 12 MG/DL 9 MG/DL Creatinine 1.05 MG/DL 1.05 MG/DL Random Glucose 73 MG/DL 115 MG/DL Total Protein 8.2 GM/DL 7.0 GM/DL Albumin 4.7 GM/DL 3.9 GM/DL Calcium Level 9.2 MG/DL 8.9 MG/DL Alkaline Phosphatase 103 U/L 77 U/L Aspartate Amino Transf (AST/SGOT) 31 U/L 22 U/L Alanine Aminotransferase (ALT/SGPT) 51 U/L 44 U/L Total Bilirubin 0.4 MG/DL 0.7 MG/DL Sodium Level 140 MEQ/L 141 MEQ/L Potassium Level 3.9 MEQ/L 3.9 MEQ/L Chloride Level 106 MEQ/L 108 MEQ/L Carbon Dioxide Level 28.0 MEQ/L 25.7 MEQ/L Anion Gap 6 MEQ/L 7 MEQ/L Estimat Glomerular Filtration Rate 85 ML/MIN 85 ML/MIN Lipase 78 U/L Urine Color YELLOW Urine Turbidity CLEAR Urine pH 5.5 Urine Specific [place] 1.023 Urine Protein NEG mg/dL Urine Glucose (UA) NEG mg/dL Urine Ketones NEG mg/dL Urine Occult Blood NEG Urine Nitrite NEG Urine Bilirubin NEG Urine Urobilinogen 2.0 MG/DL Urine Leukocyte Esterase NEG Urine WBC 1 /hpf Urine Calcium Oxalate Crystals OCC /hpf Urine Mucus FEW /lpf Microscopic Urinalysis Comment CULT NOT INDICATED C-Reactive Protein 0.40 MG/DL Prothrombin Time 11.4 SEC Prothromb Time International Ratio 1.1 RATIO Physical Examination HEENT: PERRL; normocephalic; atraumatic; no jaundice. CHEST: CTA CARDIAC: RRR ABDOMEN: Soft, nondistended, mild epigastric TTP and fullness palpated; no hepatosplenomegaly; bowel sounds are present in all four quadrants. EXTREMITIES: No clubbing, cyanosis, or edema. SKIN: Normal; no rash; no jaundice. 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 (Marla Parker) Assessment and Plan Plan ASSESSMENT - hematemesis, epigastric burning, decreased appetite- unclear etiology, could be ulcer. hx robotic lap assisted paraesophageal hernia repair. CT shows wall thickening in jejunum and some air filled loops in jejunum, slightly prominenet mesenteric nodes. pt denies change in bowel habits. CRP 0.40 H. ESR 1. never had EGD or colonoscopy. denies family hx IBD. - dysphagia - since hernia repair, difficulty swallowing hard solid foods like meat. hx as above. PLAN - EGD with poss dilatation tomorrow - obtain consent - NPO after midnight - clear liquid diet - monitor labs - supportive care - further recs to follow this pt seen by myself and Dr Menendez and this note is written on his behalf (Marla Parker) Physician Comments Patient seen and examined Agree with above Continue with current supportive care Monitor labs Plan EGD tomorrow (Gene Menendez MD) Marla Parker Sep 12, 2017 09:36 Gene Menendez MD Sep 12, 2017 19:34
--- NOTE | 2017-09-12 09:52 | HHI.FPPN ---
Subjective Remarks FM Attending Note: Patient seen and examined. S: Chart and all resident physician notes reviewed. In summary this is a 27 year old male who was admitted with an admission the c/o vomiting blood, dyspepsia and dysphagia. During his evaluation in the emergency room he had a CT scan done of his abdomen and pelvis that showed mild circumferential wall thickening of the proximal to mid jejunal loop with multiple slightly distended primarily air-filled loops of mid to distal jejunum. Also noted were some mildly prominent regional mesenteric nodes. A focal adynamic ileus is suggested without excluding a closed-loop obstruction. This patient gives a history of laparoscopic surgery being done for a paraesophageal hernia the past. Since that time he notes that he has had the sensation of food, especially meats getting stuck temporarily in his lower esophagus before passing spontaneously. He has not been on any acid suppressing medications. . Objective Vitals Vital Signs Date Time Temp Pulse Resp B/P (MAP) Pulse Ox O2 Delivery O2 Flow Rate FiO2 09/12/17 07:24 97.9 78 20 132/73 (92) 96 09/12/17 03:10 97.9 70 18 125/72 (89) 98 09/11/17 23:53 98.0 66 18 137/74 (95) 97 09/11/17 20:24 96.6 67 18 131/58 (82) 97 09/11/17 18:30 98.0 73 18 138/87 (104) 96 09/11/17 16:38 73 16 137/95 (109) 97 09/11/17 14:45 77 16 160/95 (116) 98 Room Air 09/11/17 11:38 97.8 79 16 186/100 (128) 98 I/O 09/11/17 09/11/17 09/11/17 09/12/17 09/12/17 09/12/17 07:00 15:00 23:00 07:00 15:00 23:00 Intake Total 1000 ml 200 ml Output Total 1350 ml Balance 1000 ml 200 ml -1350 ml Intake IV Total 1000 ml 200 ml Output Urine Total 1350 ml Result Diagram: 09/12/1761709/12/1718 Other Results Item Value Date Time Erythrocyte Sedimentation Rate 1 mm/hr 09/11/17 1130 Total Bilirubin 0.4 MG/DL 09/11/17 1130 Aspartate Amino Transf (AST/SGOT) 31 U/L 09/11/17 1130 Alanine Aminotransferase (ALT/SGPT) 51 U/L 09/11/17 1130 Alkaline Phosphatase 103 U/L 09/11/17 1130 C-Reactive Protein 0.40 MG/DL H 09/11/17 1647 Lipase 78 U/L 09/11/17 1130 Urine Specific [place] 1.023 09/11/17 1315 Urine Occult Blood NEG 09/11/17 1315 Urine Nitrite NEG 09/11/17 1315 Urine Leukocyte Esterase NEG 09/11/17 1315 Imaging Last 48 hours Impressions Abdomen/Pelvis CT 09/11/17 1247 Signed Impressions: Service Date/Time: Monday, September 11, 2017 14:36 - CONCLUSION: 1. Mild circumferential wall thickening of a proximal to mid jejunal loop with multiple slightly distended primarily air filled loops of mid to distal jejunum. More proximal and distal loops of bowel are decompressed. There also some slightly prominent regional mesenteric nodes. Overall findings may be inflammatory or infectious in etiology with developing focal adynamic ileus or less likely partial small bowel obstruction. Overall configuration does not exclude a closed-loop obstruction. Jonatan Cantu MD Objective Remarks O. CONSTITUTIONAL/GEN: normally nourished, in NAD. EYES: conjunctiva normal, PERRLA, EOMI. NECK: thyroid midline, carotids symmetrical. LUNGS: clear A-P, respiratory effort is normal. CARDIOVASCULAR: RR without murmur or gallop. No significant edema. GI/ABD: soft without masses, without organomegaly. Non-tender. NEURO: No focal deficits. SKIN: color normal, no rashes noted. MUSC: back is normal in appearance. Extremities are normal in appearance. PSYCH/MENTAL STATUS: Alert and oriented x 3. A/P Assessment and Plan 27-year-old male admitted for emesis, CT findings concerning for inflammatory bowel disease. Gastroenterology consulted Problem List: (1) Hematemesis ICD Codes: K92.0 - Hematemesis Status: Acute Plan: Gastroenterology consult Nothing by mouth after midnight for possible EGD Zofran when necessary nausea Hemoccult negative Consider NG tube Repeat H&H in the morning 09/12/17 No change in symptoms overnight. No further emesis. Still noting burning in epigastric area. GI evaluation pending. (2) Inflammatory bowel disease ICD Codes: K52.9 - Noninfective gastroenteritis and colitis, unspecified Status: Acute Plan: CT shows the above findings. Gastroenterology consult Sedimentation rate and CRP ordered (3) FEN/PPX Status: Acute Plan: Fluids: Normal saline at 120 mL per hour Electrolyte: Monitor and replace when necessary Nutrition: Clear liquid diet, nothing by mouth after midnight Prophylaxis: Bilateral SCDs, chemical prophylaxis contraindicated given concern for GI bleed Problem Qualifiers (1) Hematemesis: Qualified Codes: K92.0 - Hematemesis Carlos Enrique Madison MD Sep 12, 2017 09:52
[2017-09-12 11:13] VITALS: BP 116/66; PULSE 64; RESP 20; TEMP 98.2; O2SAT 97
[2017-09-12] MEDS: PANTOPRAZOLE SODIUM 40 MG VIAL IV PUSH SCH ×2 (11:27→20:30)
[2017-09-12] MEDS ORDERED: CHLORHEXIDINE GLUCONATE 2 % 1 PACK (2 CLOTHS) TOPICAL PRN (15:15)
[2017-09-12] MEDS ORDERED: LACTATED RINGER'S 1000 ML IV PRN (15:15)
[2017-09-12] MEDS ORDERED: SODIUM CHLORID 0.9% 500 ML IV PRN (15:15)
[2017-09-12] MEDS ORDERED: METOPROLOL TARTRATE 25 MG TAB PO PRN (15:15)
[2017-09-12] MEDS ORDERED: POVIDONE IODINE 5% (ANTISEPSIS KIT) 4 APPLICATIONS EACH NARE PRN (15:15)
[2017-09-12 15:28] VITALS: BP 131/72; PULSE 72; RESP 20; TEMP 98.3; O2SAT 97
[2017-09-12 20:49] VITALS: BP 126/70; PULSE 61; RESP 18; TEMP 97.9; O2SAT 95
[2017-09-13 00:44] VITALS: BP 121/75; PULSE 80; RESP 18; TEMP 97.8; O2SAT 96
[2017-09-13] MEDS: SODIUM CHLOR 0.9% 1000 ML INJ 1,000 ML IV SCH ×3 (01:41→18:06)
[2017-09-13 05:02] VITALS: BP 114/67; PULSE 70; RESP 18; TEMP 97.8; O2SAT 97
[2017-09-13 07:24] LABS: BICARBONATE 27.3 MEQ/L (21.0-32.0); POTASSIUM 3.6 MEQ/L (3.5-5.1)
[2017-09-13 08:25] VITALS: BP 142/76; PULSE 67; RESP 20; TEMP 96.7; O2SAT 95
--- NOTE | 2017-09-13 08:43 | HHI.FPPN ---
Subjective Remarks Patient was seen and evaluated this morning. He reports nausea and vomit x1 this morning. He describes vomitus as non-bloody liquid. He understand that he will undergo EGD today. He inquires about time of procedure; answer deferred to GI team. Patient continues to experience burning epigastric pain; he says pain comes and goes. Patient denies chest pain, shortness of breath, heart palpitations, diarrhea and constipation. Last bowel movement was two days ago. All questions were answered. (Tessie Murguia MD R1) Objective Vitals Vital Signs Date Time Temp Pulse Resp B/P (MAP) Pulse Ox O2 Delivery O2 Flow Rate FiO2 09/13/17 08:25 96.7 67 20 142/76 (98) 95 09/13/17 05:02 97.8 70 18 114/67 (83) 97 09/13/17 00:44 97.8 80 18 121/75 (90) 96 09/12/17 20:49 97.9 61 18 126/70 (88) 95 09/12/17 15:28 98.3 72 20 131/72 (91) 97 09/12/17 11:13 98.2 64 20 116/66 (83) 97 I/O 09/12/17 09/12/17 09/12/17 09/13/17 09/13/17 09/13/17 07:00 15:00 23:00 07:00 15:00 23:00 Intake Total 1440 ml 965 ml Output Total 1350 ml 700 ml Balance -1350 ml 1440 ml 265 ml Intake IV Total 1440 ml 965 ml Output Urine Total 1350 ml 700 ml # Voids 9 (Tessie Murguia MD R1) Result Diagram: 09/12/17 0618 09/13/17 0618 Imaging Last Impressions Abdomen/Pelvis CT 09/11/17 1247 Signed Impressions: Service Date/Time: Monday, September 11, 2017 14:36 - CONCLUSION: 1. Mild circumferential wall thickening of a proximal to mid jejunal loop with multiple slightly distended primarily air filled loops of mid to distal jejunum. More proximal and distal loops of bowel are decompressed. There also some slightly prominent regional mesenteric nodes. Overall findings may be inflammatory or infectious in etiology with developing focal adynamic ileus or less likely partial small bowel obstruction. Overall configuration does not exclude a closed-loop obstruction. Jonatan Cantu MD Objective Remarks GENERAL: This is a well-nourished, well-developed patient, in no apparent distress. SKIN: No rashes, ecchymoses or lesions. Cool and dry. HEAD: Atraumatic. Normocephalic. No temporal or scalp tenderness. EYES: Pupils equal round. Extraocular motions intact. No scleral icterus. No injection or drainage. ENT: Nose without bleeding, purulent drainage or septal hematoma. Airway patent. NECK: Trachea midline. No JVD or lymphadenopathy. Supple, nontender, no meningeal signs. CARDIOVASCULAR: Regular rate and rhythm without murmurs, gallops, or rubs. RESPIRATORY: Clear to auscultation. Breath sounds equal bilaterally. No wheezes , rales, or rhonchi. GASTROINTESTINAL: Abdomen soft, non-tender, nondistended. No hepato-splenomegaly , or palpable masses. No guarding. MUSCULOSKELETAL: Extremities without clubbing, cyanosis, or edema. No joint tenderness, effusion, or edema noted. No calf tenderness. NEUROLOGICAL: Awake and alert. Cranial nerves II through XII intact. Motor and sensory grossly within normal limits. Five out of 5 muscle strength in all muscle groups. Normal speech. Procedures EGD 09/13 Medications and IVs Current Medications Medications (Trade) Dose Ordered Sig/Roberto Carlos Route Start Time Stop Time Status Last Admin Sodium Chloride 1,000 ml @ 120 mls/hr Q8H20M IV 09/11/17 16:21 09/13/17 08:53 (NS Flush) 2 ml UNSCH PRN IV FLUSH 09/11/17 16:30 (NS Flush) 2 ml BID IV FLUSH 09/11/17 21:00 09/12/17 20:29 (Tylenol) 650 mg Q4H PRN PO 09/11/17 16:30 (Zofran Inj) 4 mg Q6H PRN IVP 09/11/17 16:30 09/12/17 20:30 (Restoril) 15 mg HS PRN PO 09/11/17 16:30 (Narcan Inj) 0.4 mg UNSCH PRN IV PUSH 09/11/17 16:30 (Chuyita-Colace) 1 tab BID PO 09/11/17 21:00 09/12/17 20:29 (Milk Of Magnesia Liq) 30 ml Q12H PRN PO 09/11/17 16:30 (Senokot) 17.2 mg Q12H PRN PO 09/11/17 16:30 (Dulcolax Supp) 10 mg DAILY PRN RECTAL 09/11/17 16:30 (Lactulose Liq) 30 ml DAILY PRN PO 09/11/17 16:30 (Protonix Inj) 40 mg Q12H IV PUSH 09/12/17 10:00 09/13/17 08:51 Lactated Ringer's 1,000 ml @ 30 mls/hr Q24H PRN IV 09/12/17 15:15 09/15/17 15:14 09/13/17 09:33 Sodium Chloride 500 ml @ 30 mls/hr [id number] PRN IV 09/12/17 15:15 09/15/17 15:14 (Lopressor) 25 mg SENIOR INSIGHT MANAGER PRN PO 09/12/17 15:15 09/15/17 15:14 (Betadine 5% Antisepsis Kit) 1 applic SENIOR INSIGHT MANAGER PRN EACH NARE 09/12/17 15:15 09/15/17 15:14 (Chlorhexidine 2% Cloth) 3 pack SENIOR INSIGHT MANAGER PRN TOPICAL 09/12/17 15:15 09/15/17 15:14 (Citroma Liq) 300 ml ONCE ONCE PO 09/13/17 18:00 09/13/17 18:01 (Dulcolax Ec) 10 mg DAILY@18,21 PO 09/13/17 18:00 09/13/17 21:01 (Tessie Murguia MD R1) Urinary Catheter: No (Tessie Murguia MD R1) Vascular Central Line Catheter: No (Tessie Murguia MD R1) A/P Assessment and Plan 27-year-old male admitted for hematemesis, CT findings concerning for inflammatory bowel disease. Gastroenterology consulted. (Tessie Murguia MD R1) Attending Attestation Patient seen and examined. Case reviewed and discussed with the resident team. Agree with plan of care as discussed with me and documented in the resident note. (Carlos Enrique Madison MD) Problem List: (1) Hematemesis ICD Codes: K92.0 - Hematemesis Status: Acute Plan: Patient with reported hematemesis. Vomit 1 this morning; described as nonbloody. Labs/Studies: * On admission: Hgb 16.9. * In ED, Hemoccult negative. * 09/12: Hgb 16.2. Orders: * Gastroenterology consulted; NPO after midnight for EGD on 09/13. Medications: * Protonix 40mg q12hr IV. * Zofran 4mg q6hr IV PRN Nausea. (2) Inflammatory bowel disease ICD Codes: K52.9 - Noninfective gastroenteritis and colitis, unspecified Status: Acute Plan: Imaging with evidence of inflammatory bowel disease. Labs: * ESR 1 * CRP 0.40 Imaging: * Abdomen/Pelvis CT: Mild circumferential wall thickening of of the proximal to mid jejunal loops with multiple slightly distended primarily air filled loops of mild to distal jejunum. More proximal and distal loops of bowel are decompressed. There are some slightly prominent regional mesenteric nodes. Overall findings may be inflammatory or infectious in etiology with developing focal adynamic ileus or less likely partial small bowel obstruction. Overall configuration does not exclude a closed loop obstruction. Orders: * Gastroenterology consult. See Plan for Hematemesis. (3) FEN/PPX Status: Acute Plan: Fluids: * Normal saline at 120 mL/hr. Electrolyte: * Monitor and replace as necessary. Nutrition: * NPO after midnight. Prophylaxis: * Bilateral SCDs. * Chemical prophylaxis contraindicated given concern for GI bleed. (Tessie Murguia MD R1) Problem Qualifiers (1) Hematemesis: Qualified Codes: K92.0 - Hematemesis Tessie Murguia MD R1 Sep 13, 2017 08:43 Carlos Enrique Madison MD Sep 14, 2017 10:11
[2017-09-13] MEDS: SODIUM CHLORIDE 0.9% FLUSH 10 ML FLUSH IV FLUSH SCH ×2 (08:48→20:55)
[2017-09-13] MEDS: DOCUSATE SODIUM 50 MG/SENNA 8.6 MG TAB PO SCH ×2 (08:48→20:55)
[2017-09-13] MEDS: PANTOPRAZOLE SODIUM 40 MG VIAL IV PUSH SCH ×2 (08:51→20:55)
[2017-09-13] MEDS ORDERED: PROPOFOL 200 MG/20 ML AMP IV ONE (12:00)
[2017-09-13] MEDS ORDERED: LIDOCAINE HCL 1% PF 5 ML SYRINGE OTHER ONE (12:00)
--- NOTE | 2017-09-13 13:10 | PD.PROCEDR ---
GI Procedure PROCEDURE PERFORMED EGD INDICATION FOR PROCEDURE Hematemesis, epigastric pain, abnormal findings on CT PROCEDURE: The procedure, risks and benefits were discussed with Mr. Perera and informed consent was obtained. Anesthesia sedated him with Diprivan. He was placed in the left lateral decubitus position. EGD: The Pentax videoscope was introduced through the oropharynx and advanced to the second portion of the duodenum under direct visualization. Retroflexion was performed in the stomach. FINDINGS: The esophagus this was normal The stomach this was normal The duodenum this was normal ESTIMATED BLOOD LOSS: None SPECIMENS REMOVED: None COMPLICATIONS: None IMPRESSION: Normal EGD PLAN: We'll obtain a small bowel follow-through Consider capsule endoscopy as an outpatient If the small bowel follow-through is normal and patient is tolerating intake he may be discharged from a GI standpoint to follow up in clinic Gene Menendez MD Sep 13, 2017 13:10
[2017-09-13] MEDS ORDERED: MAGNESIUM CITRATE SOLN 300 ML BTL PO ONE ×2 (14:00→18:00)
[2017-09-13 16:45] VITALS: BP 123/67; PULSE 86; RESP 18; TEMP 96.2; O2SAT 94
[2017-09-13] MEDS: BISACODYL EC 5 MG TABEC PO SCH ×2 (18:03→20:54)
[2017-09-13 19:26] VITALS: BP 138/86; PULSE 82; RESP 17; TEMP 98; O2SAT 97
[2017-09-13 23:25] VITALS: BP_SYST 131; BP_DIAS 96; BP_DIAS 99; PULSE 68; RESP 17; TEMP 98; O2SAT 96
[2017-09-14] MEDS: SODIUM CHLOR 0.9% 1000 ML INJ 1,000 ML IV SCH ×2 (02:41→11:01)
[2017-09-14 04:22] VITALS: BP 121/66; PULSE 90; RESP 18; TEMP 98.8; O2SAT 96
[2017-09-14 07:13] LABS: HEMATOCRIT 48.9 % (39.0-51.0); MEAN CELL VOLUME 86.9 FL (80.0-100.0); MEAN CORPUSCULAR HEMOGLOBIN 29.7 PG (27.0-34.0); MEAN CORPUSCULAR HGB CONC 34.2 % (32.0-36.0); PLATELET COUNT 228 TH/MM3 (150-450); RED BLOOD COUNT 5.63 MIL/MM3 (4.50-5.90); RED CELL DISTRIBUTION WIDTH 12.9 % (11.6-17.2); REVIEW FLAG FINAL; WHITE BLOOD COUNT 11.2 TH/MM3 (4.0-11.0)
[2017-09-14 07:45] LABS: BICARBONATE 28.4 MEQ/L (21.0-32.0); POTASSIUM 3.9 MEQ/L (3.5-5.1)
[2017-09-14 08:00] VITALS: BP 130/88; PULSE 113; RESP 20; TEMP 96.2; O2SAT 96
[2017-09-14] MEDS: DOCUSATE SODIUM 50 MG/SENNA 8.6 MG TAB PO SCH (09:00)
[2017-09-14] MEDS: SODIUM CHLORIDE 0.9% FLUSH 10 ML FLUSH IV FLUSH SCH (09:00)
--- NOTE | 2017-09-14 15:40 | RADRPT ---
EXAM DATE/TIME: 09/14/2017 08:18 [facility] COMPARISON: No previous studies available for comparison. INDICATIONS : Vomiting for 4 days. FLUORO TIME: 0 minutes IMAGE COUNT: CONTRAST: Liquid E-Z Paque Barium Sulfate (60% w/v, 41% w/w) IMAGING TIME(S): 15 min, 30 min, 45 min, 1 hr, 1.5 hrs2hr,2.5hrs,3 hr,3.5hr,4hr,4.5hr,5hr,5.5hr MEDICAL HISTORY : Hernia, hiatal. SURGICAL HISTORY : Hernia repair. ENCOUNTER: Subsequent ACUITY: 4 - 6 days PAIN SCORE: 2/10 LOCATION: Abdomen. FINDINGS: Preliminary film is unremarkable. The stomach is grossly unremarkable. Examination of the small bowel demonstrates normal mucosal pattern involving the jejunum and ileum. There is no evidence of mass or obstruction. No significant dilatation of the small bowel is seen. Th ere is a mild dilatation of some of the proximal small bowel loops. However, the distal small bowel l oops appear to be normal in size. No intraluminal filling defects are identified. Small bowel trans it time is approximately 6 hours. Fluoroscopy of the abdomen and terminal ileum demonstrates no abnor mality. CONCLUSION: No mechanical obstruction. Clay Perkins MD on September 14, 2017 at 15:36 Board Certified Radiologist. This report was verified electronically.
--- NOTE | 2017-09-14 15:58 | HHI.GIFU ---
Subjective Remarks Pt resting in bed, eating popsicle, family at bedside. Asking for food. FEels much better, said he had a lot of relief with the protonix. Objective Vitals I&O Vital Signs Date Time Temp Pulse Resp B/P (MAP) Pulse Ox O2 Delivery O2 Flow Rate FiO2 09/14/17 08:00 96.2 113 20 130/88 (102) 96 09/14/17 04:22 98.8 90 18 121/66 (84) 96 09/13/17 23:25 98.0 68 17 131/96 (108) 96 09/13/17 19:26 98.0 82 17 138/86 (103) 97 09/13/17 16:45 96.2 86 18 123/67 (85) 94 I/O 09/13/17 09/13/17 09/13/17 09/14/17 09/14/17 09/14/17 07:00 15:00 23:00 07:00 15:00 23:00 Intake Total 965 ml 1250 ml 875 ml Output Total 700 ml Balance 265 ml 1250 ml 875 ml Intake Oral 875 ml IV Total 965 ml 650 ml Other 600 ml Output Urine Total 700 ml Laboratory Laboratory Tests Test 09/14/17 06:04 White Blood Count 11.2 Red Blood Count 5.63 Hemoglobin 16.7 Hematocrit 48.9 Mean Corpuscular Volume 86.9 Mean Corpuscular Hemoglobin 29.7 Mean Corpuscular Hemoglobin Concent 34.2 Red Cell Distribution Width 12.9 Platelet Count 228 Mean Platelet Volume 9.7 Blood Urea Nitrogen 13 Creatinine 1.20 Random Glucose 75 Calcium Level 9.4 Sodium Level 140 Potassium Level 3.9 Chloride Level 106 Carbon Dioxide Level 28.4 Anion Gap 6 Estimat Glomerular Filtration Rate 73 Imaging Last Impressions Small Bowel X-Ray 09/14/17 0000 Signed Impressions: Service Date/Time: Thursday, September 14, 2017 08:18 - CONCLUSION: No mechanical obstruction. Clay Perkins MD Abdomen/Pelvis CT 09/11/17 1247 Signed Impressions: Service Date/Time: Monday, September 11, 2017 14:36 - CONCLUSION: 1. Mild circumferential wall thickening of a proximal to mid jejunal loop with multiple slightly distended primarily air filled loops of mid to distal jejunum. More proximal and distal loops of bowel are decompressed. There also some slightly prominent regional mesenteric nodes. Overall findings may be inflammatory or infectious in etiology with developing focal adynamic ileus or less likely partial small bowel obstruction. Overall configuration does not exclude a closed-loop obstruction. Jonatan Cantu MD Physical Exam HEENT: PERRL; normocephalic; atraumatic; no jaundice. CHEST: CTA CARDIAC: RRR ABDOMEN: Soft, nondistended, nontender; no hepatosplenomegaly; bowel sounds are present in all four quadrants. EXTREMITIES: No clubbing, cyanosis, or edema. SKIN: Normal; no rash; no jaundice. MAINTAINER PLANT: No focal deficits; alert and oriented times three. Assessment and Plan Plan ASSESSMENT - hematemesis, epigastric burning, decreased appetite- unclear etiology, could be ulcer. hx robotic lap assisted paraesophageal hernia repair. CT shows wall thickening in jejunum and some air filled loops in jejunum, slightly prominent mesenteric nodes. pt denies change in bowel habits. CRP 0.40 H. ESR 1. denies family hx IBD. 09/13 normal EGD. SBFT no obstruction. tolerating clears will adv diet. - dysphagia - since hernia repair, difficulty swallowing hard solid foods like meat. EGD as above PLAN - LES - PO protonix 40mg daily - monitor labs - supportive care - ok to d/c from GI standpoint when tolerating regular diet - f/u with GI in 2 weeks - consider capsule endoscopy, colonoscopy outpatient this pt seen by myself and Dr Yu and this note is written on his behalf Marla Parker Sep 14, 2017 15:58
--- NOTE | 2017-09-14 16:12 | HHI.FPPN ---
Subjective Remarks Patient was seen and evaluated this morning. He reports feeling well and hungry. He is no longer experiencing epigastric burning pain. Patient denies chest pain, heart palpitations, shortness of breath, nausea/vomiting, diarrhea and constipation. All questions were answered. (Tessie Murguia MD R1) Objective Vitals Vital Signs Date Time Temp Pulse Resp B/P (MAP) Pulse Ox O2 Delivery O2 Flow Rate FiO2 09/14/17 08:00 96.2 113 20 130/88 (102) 96 09/14/17 04:22 98.8 90 18 121/66 (84) 96 09/13/17 23:25 98.0 68 17 131/96 (108) 96 09/13/17 19:26 98.0 82 17 138/86 (103) 97 09/13/17 16:45 96.2 86 18 123/67 (85) 94 I/O 09/13/17 09/13/17 09/13/17 09/14/17 09/14/17 09/14/17 07:00 15:00 23:00 07:00 15:00 23:00 Intake Total 965 ml 1250 ml 875 ml Output Total 700 ml Balance 265 ml 1250 ml 875 ml Intake Oral 875 ml IV Total 965 ml 650 ml Other 600 ml Output Urine Total 700 ml (Tessie Murguia MD R1) Result Diagram: 09/14/17 0604 09/14/17 0604 Imaging Last Impressions Small Bowel X-Ray 09/14/17 0000 Signed Impressions: Service Date/Time: Thursday, September 14, 2017 08:18 - CONCLUSION: No mechanical obstruction. Clay Perkins MD Abdomen/Pelvis CT 09/11/17 1247 Signed Impressions: Service Date/Time: Monday, September 11, 2017 14:36 - CONCLUSION: 1. Mild circumferential wall thickening of a proximal to mid jejunal loop with multiple slightly distended primarily air filled loops of mid to distal jejunum. More proximal and distal loops of bowel are decompressed. There also some slightly prominent regional mesenteric nodes. Overall findings may be inflammatory or infectious in etiology with developing focal adynamic ileus or less likely partial small bowel obstruction. Overall configuration does not exclude a closed-loop obstruction. Jonatan Cantu MD Objective Remarks GENERAL: This is a well-nourished, well-developed patient, in no apparent distress. SKIN: No rashes, ecchymoses or lesions. Cool and dry. HEAD: Atraumatic. Normocephalic. No temporal or scalp tenderness. EYES: Pupils equal round. Extraocular motions intact. No scleral icterus. No injection or drainage. ENT: Nose without bleeding, purulent drainage or septal hematoma. Airway patent. NECK: Trachea midline. No JVD or lymphadenopathy. Supple, nontender, no meningeal signs. CARDIOVASCULAR: Regular rate and rhythm without murmurs, gallops, or rubs. RESPIRATORY: Clear to auscultation. Breath sounds equal bilaterally. No wheezes , rales, or rhonchi. GASTROINTESTINAL: Abdomen soft, non-tender, nondistended. No hepato-splenomegaly , or palpable masses. No guarding. MUSCULOSKELETAL: Extremities without clubbing, cyanosis, or edema. No joint tenderness, effusion, or edema noted. No calf tenderness. NEUROLOGICAL: Awake and alert. Cranial nerves II through XII intact. Motor and sensory grossly within normal limits. Normal speech. Procedures EGD 09/13 Small bowel follow through 09/14 Medications and IVs Current Medications Medications (Trade) Dose Ordered Sig/Roberto Carlos Route Start Time Stop Time Status Last Admin Sodium Chloride 1,000 ml @ 120 mls/hr Q8H20M IV 09/11/17 16:21 09/14/17 02:41 (NS Flush) 2 ml UNSCH PRN IV FLUSH 09/11/17 16:30 (NS Flush) 2 ml BID IV FLUSH 09/11/17 21:00 09/13/17 20:55 (Tylenol) 650 mg Q4H PRN PO 09/11/17 16:30 (Zofran Inj) 4 mg Q6H PRN IVP 09/11/17 16:30 09/12/17 20:30 (Restoril) 15 mg HS PRN PO 09/11/17 16:30 (Narcan Inj) 0.4 mg UNSCH PRN IV PUSH 09/11/17 16:30 (Chuyita-Colace) 1 tab BID PO 09/11/17 21:00 09/12/17 20:29 (Milk Of Magnesia Liq) 30 ml Q12H PRN PO 09/11/17 16:30 (Senokot) 17.2 mg Q12H PRN PO 09/11/17 16:30 (Dulcolax Supp) 10 mg DAILY PRN RECTAL 09/11/17 16:30 (Lactulose Liq) 30 ml DAILY PRN PO 09/11/17 16:30 Lactated Ringer's 1,000 ml @ 30 mls/hr Q24H PRN IV 09/12/17 15:15 09/15/17 15:14 09/13/17 09:33 Sodium Chloride 500 ml @ 30 mls/hr [id number] PRN IV 09/12/17 15:15 09/15/17 15:14 (Lopressor) 25 mg BOOK PUBLISHER PRN PO 09/12/17 15:15 09/15/17 15:14 (Betadine 5% Antisepsis Kit) 1 applic BOOK PUBLISHER PRN EACH NARE 09/12/17 15:15 09/15/17 15:14 (Chlorhexidine 2% Cloth) 3 pack B[employer] PUBL[employer] PRN TOPICAL 09/12/17 15:15 09/15/17 15:14 (Protonix) 40 mg DAILY PO 09/15/17 09:00 (Tessie Murguia MD R1) Urinary Catheter: No (Tessie Murguia MD R1) Vascular Central Line Catheter: No (Tessie Murguia MD R1) A/P Assessment and Plan 27-year-old male admitted for hematemesis, CT findings concerning for inflammatory bowel disease. Gastroenterology consulted. Discharge Planning Today after small bowel follow-through if patient is tolerating regular diet. (Tessie Murguia MD R1) Attending Attestation Patient seen and examined. Case reviewed and discussed with the resident team. Agree with plan of care as discussed with me and documented in the resident note. (Carlos Enrique Madison MD) Problem List: (1) Hematemesis ICD Codes: K92.0 - Hematemesis Status: Acute Plan: Patient with reported hematemesis on admission. Patient denies vomiting today. Labs/Studies: * On admission: Hgb 16.9. * In ED, Hemoccult negative. * 09/14: Hgb 16.7. Orders: * Gastroenterology consulted; NPO after midnight for small bowel follow-through on 09/14. Medications: * Protonix 40mg q12hr IV. * Zofran 4mg q6hr IV PRN Nausea. (2) Inflammatory bowel disease ICD Codes: K52.9 - Noninfective gastroenteritis and colitis, unspecified Status: Acute Plan: Imaging with evidence of inflammatory bowel disease. Labs: * ESR 1 * CRP 0.40 Imaging: * Abdomen/Pelvis CT: Mild circumferential wall thickening of of the proximal to mid jejunal loops with multiple slightly distended primarily air filled loops of mild to distal jejunum. More proximal and distal loops of bowel are decompressed. There are some slightly prominent regional mesenteric nodes. Overall findings may be inflammatory or infectious in etiology with developing focal adynamic ileus or less likely partial small bowel obstruction. Overall configuration does not exclude a closed loop obstruction. Orders: * Gastroenterology consult. See Plan for Hematemesis. (3) FEN/PPX Status: Acute Plan: Fluids: * Normal saline at 120 mL/hr. * LR 1,000 ml at 30 ml/hr. Electrolyte: * Monitor and replace as necessary. Nutrition: * NPO after midnight. Prophylaxis: * Bilateral SCDs. * Chemical prophylaxis contraindicated given concern for GI bleed. (Tessie Murguia MD R1) Problem Qualifiers (1) Hematemesis: Qualified Codes: K92.0 - Hematemesis Tessie Murguia MD R1 Sep 14, 2017 16:12 Carlos Enrique Madison MD Sep 16, 2017 13:41
[2017-09-14] MEDS ORDERED: PANT40TA3 PO (16:27)
--- NOTE | 2017-09-14 16:28 | HHI.DCPOC ---
Discharge Care Plan Diagnosis: (1) Hematemesis (2) Inflammatory bowel disease Goals to Promote Your Health * To prevent worsening of your condition and complications * To maintain your health at the optimal level Directions to Meet Your Goals Take your medications as prescribed Follow your dietary instruction Follow activity as directed Keep your appointments as scheduled Take your immunizations and boosters as scheduled If your symptoms worsen call your PCP, if no PCP go to Urgent Care Center or Emergency Room Smoking is Dangerous to Your Health. Avoid second hand smoke Call the 24-hour hour crisis hotline for domestic abuse at Tessie Murguia MD R1 Sep 14, 2017 16:28
--- NOTE | 2017-09-14 16:36 | HHI.DS ---
Discharge Summary Admission Date Sep 11, 2017 at 15:36 Discharge Date: Sep 14, 2017 Admitting Diagnosis Hematemasis; Sm Bowel Dz (1) Hematemesis Diagnosis: Principal ICD Codes: K92.0 - Hematemesis Status: Acute (2) Inflammatory bowel disease Diagnosis: Principal ICD Codes: K52.9 - Noninfective gastroenteritis and colitis, unspecified Status: Acute Brief History 27-year-old male admitted for hematemesis, CT findings concerning for inflammatory bowel disease. Gastroenterology consulted. CBC/BMP: 09/14/17 0604 09/14/17 0604 Significant Findings Laboratory Tests Test 09/11/17 16:47 09/12/17 06:18 09/13/17 06:18 09/14/17 06:04 C-Reactive Protein 0.40 MG/DL (0.00-0.30) Monocytes (%) (Auto) 10.1 % (0.0-8.0) Random Glucose 115 MG/DL (74-106) Chloride Level 108 MEQ/L (98-107) Estimat Glomerular Filtration Rate 85 ML/MIN (>89) 72 ML/MIN (>89) 73 ML/MIN (>89) White Blood Count 11.2 TH/MM3 (4.0-11.0) Imaging Last Impressions Small Bowel X-Ray 09/14/17 0000 Signed Impressions: Service Date/Time: Thursday, September 14, 2017 08:18 - CONCLUSION: No mechanical obstruction. Clay Perkins MD Abdomen/Pelvis CT 09/11/17 1247 Signed Impressions: Service Date/Time: Monday, September 11, 2017 14:36 - CONCLUSION: 1. Mild circumferential wall thickening of a proximal to mid jejunal loop with multiple slightly distended primarily air filled loops of mid to distal jejunum. More proximal and distal loops of bowel are decompressed. There also some slightly prominent regional mesenteric nodes. Overall findings may be inflammatory or infectious in etiology with developing focal adynamic ileus or less likely partial small bowel obstruction. Overall configuration does not exclude a closed-loop obstruction. Jonatan Cantu MD PE at Discharge GENERAL: This is a well-nourished, well-developed patient, in no apparent distress. SKIN: No rashes, ecchymoses or lesions. Cool and dry. HEAD: Atraumatic. Normocephalic. No temporal or scalp tenderness. EYES: Pupils equal round. Extraocular motions intact. No scleral icterus. No injection or drainage. ENT: Nose without bleeding, purulent drainage or septal hematoma. Airway patent. NECK: Trachea midline. No JVD or lymphadenopathy. Supple, nontender, no meningeal signs. CARDIOVASCULAR: Regular rate and rhythm without murmurs, gallops, or rubs. RESPIRATORY: Clear to auscultation. Breath sounds equal bilaterally. No wheezes , rales, or rhonchi. GASTROINTESTINAL: Abdomen soft, non-tender, nondistended. No hepato-splenomegaly , or palpable masses. No guarding. MUSCULOSKELETAL: Extremities without clubbing, cyanosis, or edema. No joint tenderness, effusion, or edema noted. No calf tenderness. NEUROLOGICAL: Awake and alert. Cranial nerves II through XII intact. Motor and sensory grossly within normal limits. Normal speech. Hospital Course Hematemesis Patient with reported hematemesis on admission. Patient denies vomiting on day of discharge. Labs/Studies: * On admission: Hgb 16.9. * In ED, Hemoccult negative. * 09/14: Hgb 16.7. Orders: * Gastroenterology consulted; EGD and small bowel follow-through normal. Biopsies pending. Medications: * Protonix 40mg q12hr IV. To be discharged on medication. * Zofran 4mg q6hr IV PRN Nausea. Inflammatory bowel disease Imaging with evidence of inflammatory bowel disease. Labs: * ESR 1 * CRP 0.40 Imaging: * Abdomen/Pelvis CT: Mild circumferential wall thickening of of the proximal to mid jejunal loops with multiple slightly distended primarily air filled loops of mild to distal jejunum. More proximal and distal loops of bowel are decompressed. There are some slightly prominent regional mesenteric nodes. Overall findings may be inflammatory or infectious in etiology with developing focal adynamic ileus or less likely partial small bowel obstruction. Overall configuration does not exclude a closed loop obstruction. Follow-up with GI in 2 weeks. Pt Condition on Discharge: Stable Discharge Disposition: Discharge Home Discharge Instructions DIET: Follow Instructions for: As Tolerated, No Restrictions Activities you can perform: Regular-No Restrictions Follow up Referrals: Gastroenterology - 2 Weeks with Wallace Yu MD PCP Follow-up - 2-3 Days New Medications: Pantoprazole (Pantoprazole) 40 Mg Tab 40 MG PO DAILY, #30 TAB Tessie Murguia MD R1 Sep 14, 2017 16:36
[2017-09-14 17:10] VITALS: BP 130/67; PULSE 76; RESP 20; TEMP 96.6; O2SAT 95
[2017-09-15] MEDS ORDERED: PANTOPRAZOLE SOD 40 MG DELAYED RELEASE TAB PO SCH (09:00)
== END 2017-09-14 18:42 | disposition home or self-care (01) ==
LOC: NEPD 11:36 → NEDA 15:36 → NEPHCDU 17:28
PROVIDERS: ADMIT Family Medicine; ATTEND Family Medicine
DX: K92.0 Hematemesis (principal); K52.9 Noninfective gastroenteritis and colitis, unspecified; R42 Dizziness and giddiness; K21.9 Gastro-esophageal reflux disease without esophagitis; F41.9 Anxiety disorder, unspecified
CPT/HCPCS: 00740; 43235; 74176; 74250; 80048; 80053; 81001; 83690; 85025; 85027; 85610; 85652; 86140; 96361; 96374; 96375; 96376; 99285; C9113; G0378; J0744; J2405; J7030; J7120

== ENCOUNTER 2017-11-30 11:29 | Emergency (ER) | payer SELFPAY ==
[~2017-11-30] VITALS: Ht 170.2 cm; Wt 83.0 kg
[~2017-11-30 11:29] MED LIST changes: -BACL10TA PO; -NAPR500T2 PO; +PANT40TA3 PO
[2017-11-30 11:35] VITALS: BP 146/91; PULSE 78; RESP 18; TEMP 98; O2SAT 98
[2017-11-30] MEDS ORDERED: SODIUM CHLOR 0.9% 1000 ML INJ 1,000 ML IV SCH (12:35)
--- NOTE | 2017-11-30 12:41 | PD ---
HPI Chief Complaint: Abdominal Pain Time Seen by Provider: 12:17 Travel History International Travel<30 days: No Contact w/Intl Traveler<30days: No Traveled to known affect area: No History of Present Illness HPI c/o upper abdominal pain, nonrad, 6/10, pressure like at times and sharp at others. states assoc with nausea only....no alleviating/aggravating factors......denies assoc factors such as fever/v/d/cp/backpain/ all:denies pmhx/: anxiety, gerd, gallstones psxh:paraesophageal hernia repair laparoscopic, t+a PFSH Past Medical History Asthma: No Blood Disorders: No Anxiety: Yes Depression: No Heart Rhythm Problems: No Cancer: No Cardiovascular Problems: No High Cholesterol: No Chemotherapy: No Chest Pain: No Congestive Heart Failure: No COPD: No Cerebrovascular Accident: No Diabetes: No Diminished Hearing: No Endocrine: No Gastrointestinal Disorders: Yes (GERD, HX GALL STONES) GERD: No Genitourinary: No Headaches: Yes Hepatitis: No Hiatal Hernia: Yes Immune Disorder: No Musculoskeletal: No Neurologic: Yes ("SEIZURE-LIKE SYMPTOMS" RESOLVED) Psychiatric: Yes (ANXIETY HX) Reproductive: No Respiratory: No Immunizations Current: Yes Migraines: No Seizures: No Sleep Apnea: No Thyroid Disease: No Ulcer: No Past Surgical History Abdominal Surgery: Yes (laparoscopy parasphyngeal hernia repair) AICD: No Joint Replacement: No Oral Surgery: Yes (TONSILLECTOMY AGE 5) Pacemaker: No Tonsillectomy: Yes Other Surgery: Yes Social History Alcohol Use: Yes (occ) Tobacco Use: No (never) Substance Use: No Allergies-Medications (Allergen,Severity, Reaction): Coded Allergies: No Known Allergies (Verified Allergy, Unknown, 11/30/17) Reported Meds & Prescriptions Reported Meds & Active Scripts Active No Active Prescriptions or Reported Medications Review of Systems General / Constitutional: No: Fever Eyes: No: Visual changes HENT: No: Headaches Cardiovascular: No: Chest Pain or Discomfort Respiratory: No: Shortness of Breath Gastrointestinal: Positive: Abdominal Pain Genitourinary: No: Dysuria Musculoskeletal: No: Pain Skin: No Rash Neurologic: No: Weakness Psychiatric: No: Depression Endocrine: No: Polydipsia Hematologic/Lymphatic: No: Easy Bruising Physical Exam Narrative GENERAL: SKIN: Warm and dry. HEAD: Atraumatic. Normocephalic. EYES: Pupils equal and round. No scleral icterus. No injection or drainage. ENT: No nasal bleeding or discharge. Mucous membranes pink and moist. NECK: Trachea midline. No JVD. CARDIOVASCULAR: Regular rate and rhythm. RESPIRATORY: No accessory muscle use. Clear to auscultation. Breath sounds equal bilaterally. GASTROINTESTINAL: Abdomen soft, mild ruq/epig region ttpercussion, nondistended. MUSCULOSKELETAL: Extremities without clubbing, cyanosis, or edema. No obvious deformities. NEUROLOGICAL: Awake and alert. No obvious cranial nerve deficits. Motor grossly within normal limits. Five out of 5 muscle strength in the arms and legs. Normal speech. PSYCHIATRIC: Appropriate mood and affect; insight and judgment normal. Data Data Last Documented VS Vital Signs Date Time Temp Pulse Resp B/P (MAP) Pulse Ox O2 Delivery O2 Flow Rate FiO2 11/30/17 11:35 98.0 78 18 146/91 (109) 98 Orders Orders Complete Blood Count With Diff (11/30/17 12:35) Comprehensive Metabolic Panel (11/30/17 12:35) Lipase (11/30/17 12:35) Urinalysis - C+S If Indicated (11/30/17 12:35) Ct Abd/Pel W/O Iv Contrast (11/30/17 12:35) Iv Access Insert/Monitor (11/30/17 12:35) Ecg Monitoring (11/30/17 12:35) Oximetry (11/30/17 12:35) NPO (11/30/17 12:35) Morphine Inj (Morphine Inj) (11/30/17 12:45) Ondansetron Inj (Zofran Inj) (11/30/17 12:45) Sodium Chlor 0.9% 1000 Ml Inj (Ns 1000 M (11/30/17 12:35) Sodium Chloride 0.9% Flush (Ns Flush) (11/30/17 12:45) Labs Laboratory Tests Test 11/30/17 11:41 11/30/17 13:00 Urine Color YELLOW Urine Turbidity CLEAR Urine pH 6.0 Urine Specific [place] 1.030 Urine Protein NEG mg/dL Urine Glucose (UA) NEG mg/dL Urine Ketones NEG mg/dL Urine Occult Blood NEG Urine Nitrite NEG Urine Bilirubin NEG Urine Urobilinogen LESS THAN 2.0 MG/DL Urine Leukocyte Esterase NEG Urine WBC LESS THAN 1 /hpf Urine Mucus FEW /lpf Microscopic Urinalysis Comment CULT NOT INDICATED White Blood Count 9.4 TH/MM3 Red Blood Count 5.25 MIL/MM3 Hemoglobin 15.7 GM/DL Hematocrit 45.5 % Mean Corpuscular Volume 86.6 FL Mean Corpuscular Hemoglobin 30.0 PG Mean Corpuscular Hemoglobin Concent 34.6 % Red Cell Distribution Width 13.0 % Platelet Count 220 TH/MM3 Mean Platelet Volume 10.6 FL Neutrophils (%) (Auto) 72.1 % Lymphocytes (%) (Auto) 17.3 % Monocytes (%) (Auto) 9.0 % Eosinophils (%) (Auto) 0.8 % Basophils (%) (Auto) 0.8 % Neutrophils # (Auto) 6.8 TH/MM3 Lymphocytes # (Auto) 1.6 TH/MM3 Monocytes # (Auto) 0.8 TH/MM3 Eosinophils # (Auto) 0.1 TH/MM3 Basophils # (Auto) 0.1 TH/MM3 CBC Comment DIFF FINAL Differential Comment Blood Urea Nitrogen 16 MG/DL Creatinine 1.19 MG/DL Random Glucose 77 MG/DL Total Protein 7.1 GM/DL Albumin 4.4 GM/DL Calcium Level 9.1 MG/DL Alkaline Phosphatase 98 U/L Aspartate Amino Transf (AST/SGOT) 28 U/L Alanine Aminotransferase (ALT/SGPT) 41 U/L Total Bilirubin 0.5 MG/DL Sodium Level 142 MEQ/L Potassium Level 4.2 MEQ/L Chloride Level 111 MEQ/L Carbon Dioxide Level 24.5 MEQ/L Anion Gap 7 MEQ/L Estimat Glomerular Filtration Rate 74 ML/MIN Lipase 71 U/L [facility] Medical Decision Making Medical Screen Exam Complete: Yes Emergency Medical Condition: Yes Medical Record Reviewed: Yes Differential Diagnosis biliary colic v pancreatitis v hepatitis v divertic v colitis Narrative Course CT NEG FOR COLITIS/DIVERTIC/PANCREATITIS/KIDNEY STONES....NORMAL LIVER/KIDNEY/ PANCREAS FUNCTION....PATIENT WILL BE DISCHARGED FOR ABD PAIN NOS Diagnosis Primary Impression: ABDOMINAL PAIN NOS Patient Instructions: Abdominal Pain (ED), General Instructions Scripts Tramadol (Ultram) 50 Mg Tab 50 MG PO Q8H Y for PAIN, #14 TAB 0 Refills Prov: Ming Ramirez MD 11/30/17 Disposition: 01 DISCHARGE HOME Condition: Stable Ming Ramirez MD Nov 30, 2017 12:41
[2017-11-30] MEDS ORDERED: ONDANSETRON HCL 4 MG/2 ML VIAL IVP ONE (12:45)
[2017-11-30] MEDS ORDERED: SODIUM CHLORIDE 0.9% FLUSH 10 ML FLUSH IV FLUSH PRN (12:45)
[2017-11-30] MEDS ORDERED: MORPHINE SULFATE 4 MG/ML INJ IV PUSH ONE (12:45)
[2017-11-30 13:05] LABS: BILIRUBIN, URINE NEG (NEG); BLOOD, URINE NEG (NEG); GLUCOSE,URINE NEG (NEG); KETONE, URINE NEG (NEG); MUCUS URINE FEW /lpf (OCC); NITRITE,URINE NEG (NEG); URINE COLOR YELLOW (YELLW/STRAW); URINE LEUKOCYTE ESTERASE NEG (NEG)
--- NOTE | 2017-11-30 13:07 | RADRPT ---
EXAM DATE/TIME: 11/30/2017 12:48 [facility] COMPARISON: CT ABDOMEN & PELVIS W/O CONTRAST, September 11, 2017, 14:36. INDICATIONS : Bilateral upper quadrant pain. Vomiting blood and hematuria. ORAL CONTRAST: No oral contrast ingested. RADIATION DOSE: 6.84 CTDIvol (mGy) MEDICAL HISTORY : Seizures. Gallstones. SURGICAL HISTORY : Hiatal hernia repair. ENCOUNTER: Initial ACUITY: 1 day PAIN SCALE: 5/10 LOCATION: Bilateral upper quadrant TECHNIQUE: Volumetric scanning of the abdomen and pelvis was performed. Using automated exposure control and ad justment of the mA and/or kV according to patient size, radiation dose was kept as low as reasonably achievable to obtain optimal diagnostic quality images. DICOM format image data is available electro nically for review and comparison. FINDINGS: Lung bases are clear. Osseous structures are intact. No pleural or pericardial effusions are seen. Li j luis, gallbladder, spleen, pancreas, adrenals, kidneys are normal in appearance. Urinary bladder, pros govea unremarkable. Stomach, small bowel, large bowel unremarkable. No adenopathy or aneurysm. CONCLUSION: Normal examination. Leonard Landis MD on November 30, 2017 at 13:04 Board Certified Radiologist. This report was verified electronically.
[2017-11-30 15:34] LABS: AUTOMATED NEUTROPHIL # 6.8 TH/MM3 (1.8-7.7); BASOPHIL # 0.1 TH/MM3 (0-0.2); BASOPHIL % 0.8 % (0.0-2.0); EOSINOPHIL # 0.1 TH/MM3 (0-0.4); EOSINOPHIL % 0.8 % (0.0-4.0); HEMATOCRIT 45.5 % (39.0-51.0); HEMOGLOBIN 15.7 GM/DL (13.0-17.0); LYMPH % 17.3 % (9.0-44.0); LYMPHOCYTE # 1.6 TH/MM3 (1.0-4.8); MEAN CELL VOLUME 86.6 FL (80.0-100.0); MEAN CORPUSCULAR HGB CONC 34.6 % (32.0-36.0); MEAN PLATELET VOLUME 10.6 FL (7.0-11.0); MONOCYTE # 0.8 TH/MM3 (0-0.9); NEUT % 72.1 % (16.0-70.0); PLATELET COUNT 220 TH/MM3 (150-450); RED BLOOD COUNT 5.25 MIL/MM3 (4.50-5.90); WHITE BLOOD COUNT 9.4 TH/MM3 (4.0-11.0)
[2017-11-30 15:51] LABS: ALBUMIN 4.4 GM/DL (3.4-5.0); ALT (GPT) 41 U/L (12-78); AST (GOT) 28 U/L (15-37); BICARBONATE 24.5 MEQ/L (21.0-32.0); BLOOD UREA NITROGEN 16 MG/DL (7-18); CALCIUM 9.1 MG/DL (8.5-10.1); CHLORIDE 111 MEQ/L (98-107); CREATININE 1.19 MG/DL (0.60-1.30); GLOMERULAR FILTRATION RATE 74 ML/MIN (>89); GLUCOSE,RANDOM 77 MG/DL (74-106); SODIUM (NA) 142 MEQ/L (136-145)
[2017-11-30 15:53] LABS: ALKALINE PHOSPHATASE 98 U/L (45-117); TOTAL BILIRUBIN ADULT 0.5 MG/DL (0.2-1.0); TOTAL PROTEIN 7.1 GM/DL (6.4-8.2)
[2017-11-30] MEDS ORDERED: TRAM50 PO (16:22)
== END 2017-11-30 16:45 | disposition home or self-care (01) ==
LOC: NEPD 11:29
DX: R10.9 Unspecified abdominal pain (principal); F41.9 Anxiety disorder, unspecified; K21.9 Gastro-esophageal reflux disease without esophagitis
CPT/HCPCS: 74176; 80053; 81001; 83690; 85025; 96361; 96374; 96375; 99284; J2270; J2405; J7030

== ENCOUNTER 2017-12-12 23:57 | Emergency (ER) | payer SELFPAY ==
[~2017-12-12] VITALS: Ht 170.2 cm; Wt 87.0 kg
[~2017-12-12 23:57] MED LIST changes: -PANT40TA3 PO; +TRAM50 PO
[2017-12-13 00:10] VITALS: BP 161/89; PULSE 86; RESP 18; TEMP 97.6; O2SAT 98
[2017-12-13 01:53] LABS: AUTOMATED NEUTROPHIL # 9.3 TH/MM3 (1.8-7.7); BASOPHIL # 0.1 TH/MM3 (0-0.2); BASOPHIL % 0.6 % (0.0-2.0); EOSINOPHIL # 0.1 TH/MM3 (0-0.4); HEMATOCRIT 46.7 % (39.0-51.0); HEMOGLOBIN 16.4 GM/DL (13.0-17.0); LYMPH % 16.3 % (9.0-44.0); LYMPHOCYTE # 2.1 TH/MM3 (1.0-4.8); MEAN CELL VOLUME 85.9 FL (80.0-100.0); MEAN CORPUSCULAR HEMOGLOBIN 30.1 PG (27.0-34.0); MEAN CORPUSCULAR HGB CONC 35.1 % (32.0-36.0); MEAN PLATELET VOLUME 9.7 FL (7.0-11.0); MONO % 9.2 % (0.0-8.0); MONOCYTE # 1.2 TH/MM3 (0-0.9); NEUT % 72.9 % (16.0-70.0); PLATELET COUNT 204 TH/MM3 (150-450); RED BLOOD COUNT 5.43 MIL/MM3 (4.50-5.90); RED CELL DISTRIBUTION WIDTH 13.3 % (11.6-17.2); WHITE BLOOD COUNT 12.7 TH/MM3 (4.0-11.0)
[2017-12-13 02:21] LABS: ALKALINE PHOSPHATASE 115 U/L (45-117); TOTAL BILIRUBIN ADULT 0.4 MG/DL (0.2-1.0); TOTAL PROTEIN 7.5 GM/DL (6.4-8.2)
[2017-12-13 02:23] LABS: ALBUMIN 4.5 GM/DL (3.4-5.0); ALT (GPT) 43 U/L (12-78); AST (GOT) 26 U/L (15-37); BICARBONATE 25.8 MEQ/L (21.0-32.0); BLOOD UREA NITROGEN 15 MG/DL (7-18); CALCIUM 8.8 MG/DL (8.5-10.1); CHLORIDE 108 MEQ/L (98-107); CREATININE 1.16 MG/DL (0.60-1.30); GLOMERULAR FILTRATION RATE 76 ML/MIN (>89); GLUCOSE,RANDOM 104 MG/DL (74-106); SODIUM (NA) 143 MEQ/L (136-145)
--- NOTE | 2017-12-13 04:04 | RADRPT ---
EXAM DATE/TIME: 12/13/2017 03:41 [facility] COMPARISON: ABDOMEN KUB ONLY, June 04, 2015, 4:30. INDICATIONS : Abdominal pain. MEDICAL HISTORY : Seizures. Gallstones. SURGICAL HISTORY : Hiatal hernia repair. ENCOUNTER: Initial ACUITY: 1 day PAIN SCORE: 8/10 LOCATION: all quadrants. FINDINGS: 2 supine frontal views of the abdomen show dilated loops of gas-filled small bowel within the left up per quadrant. Gas stool throughout normal caliber colon. Gas and stool seen to level of rectal vault. No organomegaly. No calcifications. Mild scoliosis of the spine. CONCLUSION: Mildly dilated loops of gas-filled small bowel in the left upper quadrant in a nonspecific pattern. Elmer Bocanegra Jr., MD on December 13, 2017 at 4:02 Board Certified Radiologist. This report was verified electronically.
[2017-12-13] MEDS ORDERED: SODIENE9 PR (04:16)
[2017-12-13] MEDS ORDERED: MIRA3350 PO (04:16)
[2017-12-13] MEDS ORDERED: DICY10 PO (04:17)
--- NOTE | 2017-12-13 04:17 | PD ---
HPI Chief Complaint: Abdominal Pain Time Seen by Provider: 02:15 Travel History International Travel<30 days: No Contact w/Intl Traveler<30days: No Traveled to known affect area: No History of Present Illness HPI 27-year-old male complains of abdominal pain. He reports constipation for a week and a half. He denies fever. He reports vomiting multiple times today. He thinks are been specks of blood in the vomit. No chest pain. Severity moderate. Modifying factor. Positive flatus. PFSH Past Medical History Asthma: No Blood Disorders: No Anxiety: Yes Depression: No Heart Rhythm Problems: No Cancer: No Cardiovascular Problems: No High Cholesterol: No Chemotherapy: No Chest Pain: No Congestive Heart Failure: No COPD: No Cerebrovascular Accident: No Diabetes: No Diminished Hearing: No Endocrine: No Gastrointestinal Disorders: Yes (GERD, HX GALL STONES) GERD: Yes Genitourinary: No Headaches: Yes Hepatitis: No Hiatal Hernia: Yes Immune Disorder: No Musculoskeletal: No Neurologic: Yes ("SEIZURE-LIKE SYMPTOMS" RESOLVED) Psychiatric: Yes (ANXIETY HX) Reproductive: No Respiratory: No Immunizations Current: Yes Migraines: No Seizures: No Sleep Apnea: No Thyroid Disease: No Ulcer: No Past Surgical History Abdominal Surgery: Yes (laparoscopy parasphyngeal hernia repair) AICD: No Joint Replacement: No Oral Surgery: Yes (TONSILLECTOMY AGE 5) Pacemaker: No Tonsillectomy: Yes Other Surgery: Yes Social History Alcohol Use: Yes (occ) Tobacco Use: No Substance Use: No Allergies-Medications (Allergen,Severity, Reaction): Coded Allergies: No Known Allergies (Verified Allergy, Unknown, 12/13/17) Reported Meds & Prescriptions Reported Meds & Active Scripts Active Bentyl (Dicyclomine HCl) 10 Mg Cap 10 Mg PO TID PRN Miralax Powder (Polyethylene Glycol 3350 Powder) 17 Gm Powd 17 Gm PO DAILY Mix and dissolve one measuring cap-ful (17 grams) in water or juice. Enema Huoxk-Ko-Otf (Sodium Phosphates) 19 Gram-7 Gram/118 Ml Alisha 1 Unit TN BID Ultram (Tramadol HCl) 50 Mg Tab 50 Mg PO Q8H PRN Review of Systems Except as stated in HPI: all other systems reviewed are Neg Physical Exam Narrative GENERAL: 27-year-old male pleasant well-nourished well-developed resting comfortably in bed Vital Signs Date Time Temp Pulse Resp B/P (MAP) Pulse Ox O2 Delivery O2 Flow Rate FiO2 12/13/17 00:10 97.6 86 18 161/89 (113) 98 RECTAL: There is hard stool in the vault. SKIN: Warm and dry. HEAD: Atraumatic. Normocephalic. EYES: Pupils equal and round. No scleral icterus. No injection or drainage. ENT: No nasal bleeding or discharge. Mucous membranes pink and moist. NECK: Trachea midline. No JVD. CARDIOVASCULAR: Regular rate and rhythm. RESPIRATORY: No accessory muscle use. Clear to auscultation. Breath sounds equal bilaterally. GASTROINTESTINAL: Abdomen soft, non-tender, nondistended. Hepatic and splenic margins not palpable. MUSCULOSKELETAL: Extremities without clubbing, cyanosis, or edema. No obvious deformities. NEUROLOGICAL: Awake and alert. No obvious cranial nerve deficits. Motor grossly within normal limits. Five out of 5 muscle strength in the arms and legs. Normal speech. PSYCHIATRIC: Appropriate mood and affect; insight and judgment normal. Data Data Last Documented VS Vital Signs Date Time Temp Pulse Resp B/P (MAP) Pulse Ox O2 Delivery O2 Flow Rate FiO2 12/13/17 00:10 97.6 86 18 161/89 (113) 98 Orders Orders Complete Blood Count With Diff (12/13/17 01:39) Comprehensive Metabolic Panel (12/13/17 01:39) Urinalysis - C+S If Indicated (12/13/17 01:39) Iv Access Insert/Monitor (12/13/17 01:39) Oxygen Administration (12/13/17 01:39) Oximetry (12/13/17 01:39) Lipase (12/13/17 01:39) Abdomen, Kub Only (12/13/17 ) Ct Abd/Pel W Iv Contrast(Rout) (12/13/17 04:18) Morphine Inj (Morphine Inj) (12/13/17 04:30) Iohexol 350 Inj (Omnipaque 350 Inj) (12/13/17 04:44) Labs Laboratory Tests Test 12/13/17 01:44 12/13/17 04:05 White Blood Count 12.7 TH/MM3 Red Blood Count 5.43 MIL/MM3 Hemoglobin 16.4 GM/DL Hematocrit 46.7 % Mean Corpuscular Volume 85.9 FL Mean Corpuscular Hemoglobin 30.1 PG Mean Corpuscular Hemoglobin Concent 35.1 % Red Cell Distribution Width 13.3 % Platelet Count 204 TH/MM3 Mean Platelet Volume 9.7 FL Neutrophils (%) (Auto) 72.9 % Lymphocytes (%) (Auto) 16.3 % Monocytes (%) (Auto) 9.2 % Eosinophils (%) (Auto) 1.0 % Basophils (%) (Auto) 0.6 % Neutrophils # (Auto) 9.3 TH/MM3 Lymphocytes # (Auto) 2.1 TH/MM3 Monocytes # (Auto) 1.2 TH/MM3 Eosinophils # (Auto) 0.1 TH/MM3 Basophils # (Auto) 0.1 TH/MM3 CBC Comment DIFF FINAL Differential Comment Blood Urea Nitrogen 15 MG/DL Creatinine 1.16 MG/DL Random Glucose 104 MG/DL Total Protein 7.5 GM/DL Albumin 4.5 GM/DL Calcium Level 8.8 MG/DL Alkaline Phosphatase 115 U/L Aspartate Amino Transf (AST/SGOT) 26 U/L Alanine Aminotransferase (ALT/SGPT) 43 U/L Total Bilirubin 0.4 MG/DL Sodium Level 143 MEQ/L Potassium Level 3.9 MEQ/L Chloride Level 108 MEQ/L Carbon Dioxide Level 25.8 MEQ/L Anion Gap 9 MEQ/L Estimat Glomerular Filtration Rate 76 ML/MIN Lipase 69 U/L Urine Color YELLOW Urine Turbidity CLEAR Urine pH 6.0 Urine Specific [place] 1.030 Urine Protein NEG mg/dL Urine Glucose (UA) NEG mg/dL Urine Ketones NEG mg/dL Urine Occult Blood NEG Urine Nitrite NEG Urine Bilirubin NEG Urine Urobilinogen LESS THAN 2.0 MG/DL Urine Leukocyte Esterase NEG Urine RBC 1 /hpf Urine WBC LESS THAN 1 /hpf Urine Mucus FEW /lpf Microscopic Urinalysis Comment CULT NOT INDICATED MDM Medical Decision Making Medical Screen Exam Complete: Yes Emergency Medical Condition: Yes Medical Record Reviewed: Yes Differential Diagnosis Constipation, Gastritis, Acute Cholecystitis, Biliary Colic, Pancreatitis, LOAIZA , Hepatitis, Bowel Obstruction, Cystitis, Mesenteric Ischemia, AAA, Appendicitis , Renal Stone/Hydronephrosis, GERD, perforated viscous Narrative Course CBC & BMP Diagram 12/13/17 01:44 Total Protein 7.5, Albumin 4.5, Calcium Level 8.8, Alkaline Phosphatase 115, Aspartate Amino Transf (AST/SGOT) 26, Alanine Aminotransferase (ALT/SGPT) 43, Total Bilirubin 0.4 Lipase 69 Plain film of the abdomen was added on which shows a nonspecific though fairly prominent bowel gas pattern and left upper quadrant. CT scan added on. Diagnosis Primary Impression: Upper abdominal pain, unspecified Additional Impressions: Chronic pain Qualified Codes: G89.29 - Other chronic pain Gastritis Qualified Codes: K29.70 - Gastritis, unspecified, without bleeding Referrals: Marcela Ackerman MD call for appointment Med/Other Pt SpecificInfo: Prescription(s) given Scripts Dicyclomine (Bentyl) 10 Mg Cap 10 MG PO TID Y for Bowel Management, #10 CAP 0 Refills Prov: Salvador Lucas MD 12/13/17 Polyethylene Glycol 3350 Powder (Miralax Powder) 17 Gm Powd 17 GM PO DAILY for Constipation, #1 CAN 0 Refills Mix and dissolve one measuring cap-ful (17 grams) in water or juice. Prov: Salvador Lucas MD 12/13/17 Sodium Phosphates (Enema Oltul-Jz-Ueq) 19 Gram-7 Gram/118 Ml Alisha 1 UNIT TN BID for Constipation, #4 Prov: Salvador Lucas MD 12/13/17 Disposition: DISCHARGE HOME Condition: Stable Salvador Lucas MD Dec 13, 2017 04:17
[2017-12-13] MEDS ORDERED: MORPHINE SULFATE 4 MG/ML INJ IV PUSH ONE (04:30)
[2017-12-13 04:34] LABS: BILIRUBIN, URINE NEG (NEG); BLOOD, URINE NEG (NEG); GLUCOSE,URINE NEG (NEG); KETONE, URINE NEG (NEG); MUCUS URINE FEW /lpf (OCC); NITRITE,URINE NEG (NEG); URINE COLOR YELLOW (YELLW/STRAW); URINE LEUKOCYTE ESTERASE NEG (NEG)
[2017-12-13] MEDS ORDERED: IOHEXOL 350 MG/ML 10 ML VIAL (for RAD DIAG) IVCONTRAST ONE (04:44)
[2017-12-13 04:50] VITALS: O2SAT 100
[2017-12-13 04:52] VITALS: BP 124/75; PULSE 72; RESP 18; O2SAT 100
--- NOTE | 2017-12-13 05:02 | RADRPT ---
EXAM DATE/TIME: 12/13/2017 04:37 [facility] COMPARISON: CT ABDOMEN & PELVIS W CONTRAST, August 16, 2016, 19:10. INDICATIONS : Abdominal pain with constipation and vomiting. IV CONTRAST: 100 cc Omnipaque 350 (iohexol) IV ORAL CONTRAST: No oral contrast ingested. RADIATION DOSE: 6.91 CTDIvol (mGy) MEDICAL HISTORY : Gastroesophageal reflux disease. Hernia, hiatal. SURGICAL HISTORY : None. ENCOUNTER: Initial ACUITY: 1 week PAIN SCALE: 7/10 LOCATION: Abdomen. TECHNIQUE: Volumetric scanning of the abdomen and pelvis was performed. Using automated exposure control and ad justment of the mA and/or kV according to patient size, radiation dose was kept as low as reasonably achievable to obtain optimal diagnostic quality images. DICOM format image data is available electro nically for review and comparison. FINDINGS: LOWER LUNGS: The visualized lower lungs are clear. LIVER: Homogeneous density without lesion. There is no dilation of the biliary tree. No calcified gallston es. SPLEEN: Normal size without lesion. PANCREAS: Within normal limits. KIDNEYS: Normal in size and shape. There is no mass, stone or hydronephrosis. ADRENAL GLANDS: Within normal limits. VASCULAR: There is no aortic aneurysm. BOWEL/MESENTERY: The stomach, small bowel, and colon demonstrate no acute abnormality. There is no free intraperitone al air or fluid. ABDOMINAL WALL: Within normal limits. RETROPERITONEUM: There is no lymphadenopathy. BLADDER: No wall thickening or mass. REPRODUCTIVE: Within normal limits. INGUINAL: There is no lymphadenopathy or hernia. MUSCULOSKELETAL: Within normal limits for patient age. CONCLUSION: Normal examination. Elmer Bocanegra Jr., MD on December 13, 2017 at 4:59 Board Certified Radiologist. This report was verified electronically.
== END 2017-12-13 06:00 | disposition home or self-care (01) ==
LOC: NEPE 23:57
DX: R10.10 Upper abdominal pain, unspecified (principal); G89.29 Other chronic pain; K29.70 Gastritis, unspecified, without bleeding
CPT/HCPCS: 74018; 74177; 80053; 81001; 83690; 85025; 96374; 99285; J2270; Q9967

== ENCOUNTER 2018-01-21 07:50 | Emergency (ER) | payer SELFPAY ==
[~2018-01-21] VITALS: Ht 170.2 cm; Wt 85.0 kg
[~2018-01-21 07:50] MED LIST changes: +DICY10 PO; +MIRA3350 PO; +SODIENE9 PR
[2018-01-21 07:56] VITALS: BP 129/72; PULSE 86; RESP 16; TEMP 98.2; O2SAT 99
[2018-01-21] MEDS ORDERED: SODIUM CHLOR 0.9% 1000 ML INJ 1,000 ML IV ONE ×3 (08:15→12:15)
[2018-01-21 09:00] LABS: AUTOMATED NEUTROPHIL # 13.1 TH/MM3 (1.8-7.7); BASOPHIL # 0.1 TH/MM3 (0-0.2); BASOPHIL % 0.4 % (0.0-2.0); EOSINOPHIL # 0.3 TH/MM3 (0-0.4); EOSINOPHIL % 1.7 % (0.0-4.0); HEMATOCRIT 46.2 % (39.0-51.0); HEMOGLOBIN 15.9 GM/DL (13.0-17.0); LYMPH % 11.9 % (9.0-44.0); MEAN CELL VOLUME 85.6 FL (80.0-100.0); MEAN CORPUSCULAR HEMOGLOBIN 29.5 PG (27.0-34.0); MEAN CORPUSCULAR HGB CONC 34.5 % (32.0-36.0); MEAN PLATELET VOLUME 9.4 FL (7.0-11.0); MONO % 8.8 % (0.0-8.0); MONOCYTE # 1.5 TH/MM3 (0-0.9); NEUT % 77.2 % (16.0-70.0); PLATELET COUNT 261 TH/MM3 (150-450); RED BLOOD COUNT 5.39 MIL/MM3 (4.50-5.90); RED CELL DISTRIBUTION WIDTH 12.7 % (11.6-17.2); WHITE BLOOD COUNT 16.9 TH/MM3 (4.0-11.0)
[2018-01-21 09:17] LABS: ALBUMIN 3.8 GM/DL (3.4-5.0); AST (GOT) 30 U/L (15-37); BICARBONATE 25.4 MEQ/L (21.0-32.0); BLOOD UREA NITROGEN 19 MG/DL (7-18); CALCIUM 9.5 MG/DL (8.5-10.1); CHLORIDE 105 MEQ/L (98-107); CREATININE 1.13 MG/DL (0.60-1.30); GLOMERULAR FILTRATION RATE 78 ML/MIN (>89); GLUCOSE,RANDOM 87 MG/DL (74-106); SODIUM (NA) 139 MEQ/L (136-145)
[2018-01-21 09:21] LABS: ALKALINE PHOSPHATASE 118 U/L (45-117); ALT (GPT) 70 U/L (12-78); TOTAL BILIRUBIN ADULT 0.4 MG/DL (0.2-1.0); TOTAL PROTEIN 7.9 GM/DL (6.4-8.2)
--- NOTE | 2018-01-21 09:42 | RADRPT ---
EXAM DATE/TIME: 01/21/2018 09:18 [facility] COMPARISON: CHEST SINGLE AP, August 16, 2016, 18:42. INDICATIONS : Cough. MEDICAL HISTORY : Gastroesophageal reflux disease. Hiatal hernia. SURGICAL HISTORY : None. ENCOUNTER: Initial ACUITY: 4 - 6 days PAIN SCORE: 1/10 LOCATION: Bilateral chest FINDINGS: A single view of the chest demonstrates the lungs to be symmetrically hypoinflated without evidence o f mass, infiltrate or effusion. The cardiomediastinal contours are unremarkable. Osseous structures are intact. CONCLUSION: Hypoinflation with no acute cardiopulmonary process. Preston Fernandez MD on January 21, 2018 at 9:36 Board Certified Radiologist. This report was verified electronically.
[2018-01-21] MEDS ORDERED: MORPHINE SULFATE 4 MG/ML INJ IV PUSH ONE (10:00)
--- NOTE | 2018-01-21 10:23 | PD ---
HPI . Near syncope Chief Complaint: Syncope/Near-Syncope Time Seen by Provider: 08:14 Travel History International Travel<30 days: No Contact w/Intl Traveler<30days: No Traveled to known affect area: No History of Present Illness HPI Patient presents with a chief complaint of several near syncopal episodes in the last couple of days. He reports at least 4 or 5 episodes of feeling so weak that he has fallen to the ground. He states that he became ill about 5 days ago with a febrile illness. Other symptoms include weakness, cough and sore throat. He has taken Tylenol which has helped his fever. His fever has now abated but his weakness is getting worse. He has had no known sick contacts. He states that he is usually a healthy man. He states that he has been drinking plenty of water and that his urine output has been good. Onset: 5 days Progression: Fever has abated but weakness is getting worse Associated symptoms: Cough and sore throat Severity: So weak that he has had 4 or 5 episodes of falling to the ground secondary to profound weakness. Context: Generally healthy man [facility] Past Medical History Asthma: No Blood Disorders: No Anxiety: Yes Depression: No Heart Rhythm Problems: No Cancer: No Cardiovascular Problems: No High Cholesterol: No Chemotherapy: No Chest Pain: No Congestive Heart Failure: No COPD: No Cerebrovascular Accident: No Diabetes: No Diminished Hearing: No Endocrine: No Gastrointestinal Disorders: Yes (GERD, HX GALL STONES) GERD: Yes Genitourinary: No Headaches: Yes Hepatitis: No Hiatal Hernia: Yes Immune Disorder: No Implanted Vascular Access Dvce: No Musculoskeletal: No Neurologic: Yes ("SEIZURE-LIKE SYMPTOMS" RESOLVED) Psychiatric: Yes (ANXIETY HX) Reproductive: No Respiratory: No Immunizations Current: Yes Migraines: No Seizures: No Sleep Apnea: No Thyroid Disease: No Ulcer: No Tetanus Vaccination: < 5 Years Influenza Vaccination: No Past Surgical History Abdominal Surgery: Yes (laparoscopy parasphyngeal hernia repair) AICD: No Joint Replacement: No Oral Surgery: Yes (TONSILLECTOMY AGE 5) Pacemaker: No Tonsillectomy: Yes Other Surgery: Yes Social History Alcohol Use: No Tobacco Use: No Substance Use: No Allergies-Medications (Allergen,Severity, Reaction): Coded Allergies: No Known Allergies (Verified Allergy, Unknown, 12/13/17) Reported Meds & Prescriptions Reported Meds & Active Scripts Active No Active Prescriptions or Reported Medications Review of Systems Except as stated in HPI: all other systems reviewed are Neg General / Constitutional: Positive: Fever, Chills HENT: Positive: Sore Throat Respiratory: Positive: Cough Gastrointestinal: No: Nausea, Vomiting, Diarrhea Genitourinary: No: Urgency, Dysuria, Decreased Urinary Output Neurologic: Positive: Weakness Physical Exam Narrative GENERAL: Healthy-appearing man who is in no acute distress. SKIN: warm/dry. Normal color and turgor. HEAD: Normocephalic. Atraumatic. EYES: Pupils equal and round. No scleral icterus. No injection or drainage. ENT: No nasal bleeding or discharge. Mucous membranes pink and moist. NECK: Trachea midline. Full range of motion without pain. Supple. CARDIOVASCULAR: Regular rate and rhythm. Heart sounds are normal. RESPIRATORY: No accessory muscle use. Clear to auscultation. Breath sounds equal bilaterally. GASTROINTESTINAL: Abdomen soft. Nontender. Bowel sounds present. Nondistended. MUSCULOSKELETAL: No obvious deformities. NEUROLOGICAL: Awake and alert. No obvious cranial nerve deficits. Motor grossly within normal limits. Normal speech. PSYCHIATRIC: Appropriate mood and affect; insight and judgment normal. Data Data Last Documented VS Vital Signs Date Time Temp Pulse Resp B/P (MAP) Pulse Ox O2 Delivery O2 Flow Rate FiO2 01/21/18 12:01 78 19 125/70 (88) 79 28 127/73 (91) 76 20 133/81 (98) 01/21/18 07:56 98.2 99 Orders Orders Sepsis Workup Initiated (01/21/18 ) Complete Blood Count With Diff (01/21/18 08:15) Comprehensive Metabolic Panel (01/21/18 08:15) Lactic Acid Sepsis Protocol (01/21/18 08:15) Urinalysis - C+S If Indicated (01/21/18 08:15) Blood Culture (01/21/18 08:15) Chest, Single Ap (01/21/18 08:15) Blood Glucose (01/21/18 08:15) Ecg Monitoring (01/21/18 08:15) Iv Access Insert/Monitor (01/21/18 08:15) Oximetry (01/21/18 08:15) Sodium Chlor 0.9% 1000 Ml Inj (Ns 1000 M (01/21/18 08:15) Morphine Inj (Morphine Inj) (01/21/18 10:00) Orthostatic Vital Signs (01/21/18 10:24) Sodium Chlor 0.9% 1000 Ml Inj (Ns 1000 M (01/21/18 11:15) Sodium Chlor 0.9% 1000 Ml Inj (Ns 1000 M (01/21/18 12:15) Electrocardiogram (01/21/18 ) Labs Laboratory Tests Test 01/21/18 08:30 01/21/18 10:38 White Blood Count 16.9 TH/MM3 Red Blood Count 5.39 MIL/MM3 Hemoglobin 15.9 GM/DL Hematocrit 46.2 % Mean Corpuscular Volume 85.6 FL Mean Corpuscular Hemoglobin 29.5 PG Mean Corpuscular Hemoglobin Concent 34.5 % Red Cell Distribution Width 12.7 % Platelet Count 261 TH/MM3 Mean Platelet Volume 9.4 FL Neutrophils (%) (Auto) 77.2 % Lymphocytes (%) (Auto) 11.9 % Monocytes (%) (Auto) 8.8 % Eosinophils (%) (Auto) 1.7 % Basophils (%) (Auto) 0.4 % Neutrophils # (Auto) 13.1 TH/MM3 Lymphocytes # (Auto) 2.0 TH/MM3 Monocytes # (Auto) 1.5 TH/MM3 Eosinophils # (Auto) 0.3 TH/MM3 Basophils # (Auto) 0.1 TH/MM3 CBC Comment DIFF FINAL Differential Comment Blood Urea Nitrogen 19 MG/DL Creatinine 1.13 MG/DL Random Glucose 87 MG/DL Total Protein 7.9 GM/DL Albumin 3.8 GM/DL Calcium Level 9.5 MG/DL Alkaline Phosphatase 118 U/L Aspartate Amino Transf (AST/SGOT) 30 U/L Alanine Aminotransferase (ALT/SGPT) 70 U/L Total Bilirubin 0.4 MG/DL Sodium Level 139 MEQ/L Potassium Level 4.2 MEQ/L Chloride Level 105 MEQ/L Carbon Dioxide Level 25.4 MEQ/L Anion Gap 9 MEQ/L Estimat Glomerular Filtration Rate 78 ML/MIN Lactic Acid Level 0.8 mmol/L Urine Color YELLOW Urine Turbidity CLEAR Urine pH 5.5 Urine Specific [place] 1.035 Urine Protein TRACE mg/dL Urine Glucose (UA) NEG mg/dL Urine Ketones NEG mg/dL Urine Occult Blood NEG Urine Nitrite NEG Urine Bilirubin NEG Urine Urobilinogen 2.0 MG/DL Urine Leukocyte Esterase NEG Urine RBC LESS THAN 1 /hpf Urine WBC 1 /hpf Urine Squamous Epithelial Cells <1 /hpf Urine Mucus FEW /lpf Microscopic Urinalysis Comment CATH-CULT NOT IND MDM Medical Decision Making Medical Screen Exam Complete: Yes Emergency Medical Condition: Yes Interpretation(s) EKG shows a sinus rhythm with rate of 68. No ischemic changes. Early repolarization pattern. Differential Diagnosis My differential diagnosis of syncope includes but is not limited to cardiac arrhythmia, hypovolemia, anemia, neurological catastrophe, vasovagal response Narrative Course This patient presents with a febrile illness was started about 5 days ago. The febrile illness has subsided and he is now profoundly weak such that he is falling to the ground. He is being treated with a liter of IV fluid. CBC & BMP Diagram 01/21/18 08:30 Total Protein 7.9, Albumin 3.8, Calcium Level 9.5, Alkaline Phosphatase 118 H, Aspartate Amino Transf (AST/SGOT) 30, Alanine Aminotransferase (ALT/SGPT) 70, Total Bilirubin 0.4 Lactic acid 0.8 Last Impressions Chest X-Ray 01/21/18 0815 Signed Impressions: Service Date/Time: Sunday, January 21, 2018 09:18 - CONCLUSION: Hypoinflation with no acute cardiopulmonary process. Preston Fernandez MD The chest x-ray was independently reviewed by me UA>>neg His heart rate does go above 100 when he stands. I will give him a second liter of fluid and then recheck his orthostatics. Following 2 L of fluid, when he stood up his heart rate went to 104 and he was dizzy. However, the heart rate quickly normalized. He has subsequently been given 1/3 L of fluid. Sepsis Criteria SIRS Criteria (2 or more): WBC > 77500, < 4000 or > 10% bands Diagnosis Primary Impression: Near syncope Additional Impressions: Orthostatic hypotension Dehydration Patient Instructions: Dehydration (DC), General Instructions Scripts No Active Prescriptions or Reported Meds Disposition: DISCHARGE HOME Condition: Stable Gaby Lopez MD Jan 21, 2018 10:23
[2018-01-21 10:54] LABS: BILIRUBIN, URINE NEG (NEG); BLOOD, URINE NEG (NEG); GLUCOSE,URINE NEG (NEG); KETONE, URINE NEG (NEG); MUCUS URINE FEW /lpf (OCC); NITRITE,URINE NEG (NEG); PH, URINE 5.5 (5.0-8.5); SQUAMOUS EPITHELIAL CELL URINE <1 /hpf (0-5); URINE COLOR YELLOW (YELLW/STRAW); URINE LEUKOCYTE ESTERASE NEG (NEG)
[2018-01-21 11:00] VITALS: BP_SYST 122; BP_SYST 126; BP_SYST 130; BP_DIAS 76; BP_DIAS 78; BP_DIAS 87; RESP 20; RESP 22; RESP 28
[2018-01-21 12:01] VITALS: BP_SYST 125; BP_SYST 127; BP_SYST 133; BP_DIAS 70; BP_DIAS 73; BP_DIAS 81; RESP 19; RESP 20; RESP 28
--- NOTE | 2018-01-21 20:59 | EKG ---
Date Performed: 01/21/2018 Time Performed: 08:58:40 PTAGE: 27 years EKG: Sinus rhythm EARLY REPOLARIZATION BORDERLINE ECG PREVIOUS TRACING : 12/16/2015 07.58 No significant change from previous tracing noted. DOCTOR: Chris Moseley Interpretating Date/Time 01/21/2018 20:58:03
== END 2018-01-21 13:24 | disposition home or self-care (01) ==
LOC: NEPC 07:50
DX: R55 Syncope and collapse (principal); E86.0 Dehydration; R53.1 Weakness; R50.9 Fever, unspecified; R05 Cough; R94.31 Abnormal electrocardiogram [ECG] [EKG]; F41.9 Anxiety disorder, unspecified; K21.9 Gastro-esophageal reflux disease without esophagitis
CPT/HCPCS: 71045; 80053; 81001; 83605; 85025; 87040; 93005; 96360; 96361; 99285; J7030